=== PATIENT | female | born 1970 | race Hispanic/Latino ===

== ENCOUNTER 2020-03-13 16:29 | Emergency (ER) | payer OTHER, SELFPAY ==
--- NOTE | 2020-03-13 16:37 | DI.RAD.S_ITS ---
PROCEDURE: XR CHEST 1V INDICATIONS: CHEST PAIN TECHNIQUE: One view of the chest was acquired. COMPARISON: None. FINDINGS: Surgical changes and devices: None. Lungs and pleura: Lungs are clear. No pleural effusions or pneumothorax. Mediastinum: Mediastinal contours appear normal. Heart size is normal. Bones and chest wall: No suspicious bony lesions. Overlying soft tissues appear unremarkable. IMPRESSION: No acute cardiopulmonary pathology. Dictated by: Nico Hay M.D. on 03/13/2020 at 16:58 Approved by: Nico Hay M.D. on 03/13/2020 at 16:59
[2020-03-13 16:46] VITALS: BP 116/67; PULSE 81; RESP 16; O2SAT 98
[2020-03-13] MEDS: SODIUM CHLORIDE 0.9% 1,000 ML 150 ML IV (16:46)
[2020-03-13] MEDS: ASPIRIN 81 MG CHEW TAB 324 MG PO (16:46)
[2020-03-13 17:08] LABS: Add Manual Diff / Slide Review NO; Basophils Absolute Auto 100 /uL (0-100); Basophils Percent Auto 1.4 % (0-2); Eosinophils Absolute Auto 200 /uL (0-450); Eosinophils Percent Auto 1.8 % (2-4); Hematocrit 40.2 % (36-46); Hemoglobin 13.9 g/dL (12.0-16.0); Lymphocytes Absolute Auto 3900 /uL (1100-4500); Lymphocytes Percent Auto 40.8 % (25-40); Mean Corpuscular HGB Conc 34.5 % (30-36); Mean Corpuscular Hemoglobin 32.7 PG (26-34); Mean Corpuscular Volume 94.9 fL (80-100); Monocytes Absolute Auto 400 /uL (0-900); Monocytes Percent Auto 3.7 % (3-14); Neutrophils Absolute Auto 5000 /uL (1500-7000); Neutrophils Percent Auto 52.3 % (50-75); Platelet Count 319 X10^3/uL (150-400); Red Blood Cell Count 4.23 X10^6/uL (4.0-5.2); Red Cell Distribution Width 13.8 % (11.6-14.8); White Blood Cell Count 9.6 X10^3/uL (4.5-11.0)
[2020-03-13 17:22] LABS: Albumin 4.3 g/dL (3.5-5.0); Albumin Globulin Ratio 1.4 (1.0-2.8); Alkaline Phosphatase 122 U/L (38-126); Aspartate Aminotransferase 33 IU/L (14-36); BUN Creatinine Ratio 18.6 (6-22); Bilirubin Total 0.5 mg/dL (0.2-1.3); Blood Urea Nitrogen 8 mg/dL (7-17); Calcium 9.2 mg/dL (8.4-10.2); Carbon Dioxide 22 mmol/L (22-32); Chloride 103 mmol/L (98-107); Creatine Kinase 48 U/L (30-135); Estimated Glomerular Filt Rate > 60.0 mL/min (>60); Glucose 257 mg/dL (70-100); Lipase 264 U/L (23-300); Sodium 135 mmol/L (137-145); Total Protein 7.3 g/dL (6.3-8.2)
[2020-03-13 17:29] LABS: Alanine Aminotransferase 37 IU/L (<35); HEMOLYSIS 33 (0-50)
[2020-03-13 17:33] LABS: Troponin I < 0.012 ng/mL (0.01-0.034)
[2020-03-13 17:37] VITALS: BP 112/64
[2020-03-13 17:49] LABS: Amylase 87 U/L (30-110)
[2020-03-13] MEDS: ONDANSETRON 4 MG/2 ML INJ IV (17:55)
[2020-03-13] MEDS: PANTOPRAZOLE 40 MG VIAL IV (17:55)
--- NOTE | 2020-03-13 17:57 | ED_ITS ---
HPI - Chest Pain <WEI Vieyra - Last Filed: 03/13/20 20:34> General Chief Complaint: Chest Pain Stated Complaint: CHEST PAIN Time Seen by Provider: 03/13/20 17:06 Source: patient Mode of arrival: Ambulatory Limitations: no limitations History of Present Illness HPI narrative: The patient is a 49-year-old female nonsmoker with history of type 2 diabetes who presents with a chief complaint of chest pain since yesterday. She states it is shooting and stabbing, comes without instigating factors. She has not taken anything at home to feel better other than Tylenol. She states she does have history of type 2 diabetes, and ulcer, cholecystectomy, 3 hernia surgerys as well as a Caesarean section. She states that she recently had a stomach flu for few days, with nausea, vomiting, no fevers. She denies any shortness of breath or fevers. She states she has general abdominal pain. She states that the pain is substernal, sometimes improved with change of position or pressure. Related Data Previous Rx's Medication Instructions Recorded pantoprazole [Protonix] 40 mg PO DAILY #20 tab 03/13/20 sucralfate [Carafate] 10 ml PO QACHS 10 Days #400 ml 03/13/20 Allergies Allergy/AdvReac Type Severity Reaction Status Date / Time codeine [CODEINE] Allergy Mild NAUSEA, Verified 03/13/20 17:55 SLEEP ATTACK Review of Systems <WEI Vieyra - Last Filed: 03/13/20 20:34> Review of Systems Narrative: GENERAL: Denies chills, fatigue, malaise, fever, sweats. HEENT: Denies sinus pain, ear pain, sore throat, difficulty swallowing, dizziness. RESPIRATORY: Denies dyspnea, cough, wheezing, hemoptysis, sputum. CARDIOVASCULAR: See HPI GASTROINTESTINAL: See HPI : Denies dysuria, frequency, incontinence, hematuria, urinary retention. MUSCULOSKELETAL: denies weakness, joint pain, or bony pain SKIN: Denies rash, skin lesions, or other NEUROLOGIC: Denies weakness, headache, numbness, change in speech, confusion, seizures, incoordination. PSYCHIATRIC: No concerning psychosocial issues. 12 point review of systems is negative except for those stated above Patient History <WEI Vieyra - Last Filed: 03/13/20 20:34> Surgical History (Updated 03/13/20 @ 18:00 by KYLE Vieyra) History of section (Acute) Social History Smoking Status: Never smoker Smoking Status: Never smoker Substance Use Type: does not use Exam <KYLE Vieyra - Last Filed: 03/13/20 20:34> Narrative Exam Narrative: GENERAL: This is a well-nourished, well-developed patient, in no acute distress HEAD: Atraumatic. Normocephalic. No temporal or scalp tenderness. EYES: Pupils equal round and reactive. Extraocular motions intact. No scleral icterus. No injection or drainage. ENT: Nose without bleeding, purulent drainage or septal hematoma. Throat without erythema, tonsillar hypertrophy or exudate. Uvula midline. Airway patent. NECK: Trachea midline. No JVD or lymphadenopathy. Supple, nontender, no men ingeal signs. CARDIOVASCULAR: Regular rate and rhythm RESPIRATORY: Clear to auscultation. Breath sounds equal bilaterally. No wheezes, rales, or rhonchi. No cough. No increased respiratory effort. No accessory muscle use. GASTROINTESTINAL: Abdomen soft, pain to epigastric palpation, nondistended. No hepato-splenomegaly, or palpable masses. No guarding. EXTREMITIES: No clubbing, cyanosis, or edema. No joint tenderness, effusion, or edema noted. BACK: Nontender without deformity or crepitance. No flank tenderness. NEURO: AOx3. SKIN: No rash or erythema on visible skin Initial Vital Signs Initial Vital Signs: Vital Signs Pulse Rate 81 03/13/20 16:46 Respiratory Rate 16 03/13/20 16:46 Blood Pressure 116/67 03/13/20 16:46 Pulse Oximetry 98 03/13/20 16:46 <Laura Em DO - Last Filed: 03/15/20 10:14> Initial Vital Signs Initial Vital Signs: Vital Signs Pulse Rate 81 03/13/20 16:46 Respiratory Rate 16 03/13/20 16:46 Blood Pressure 116/67 03/13/20 16:46 Pulse Oximetry 98 03/13/20 16:46 Course <KYLE Vieyra - Last Filed: 03/13/20 20:34> Orders Ordered: Discontinued Medications Aspirin (Aspirin Chew) 324 mg PO NOW ONE Stop: 03/13/20 16:38 Last Admin: 03/13/20 16:46 Dose: 324 mg Documented by: HELADIO Wetzel Hydrox/Mg Hydrox/Simethicone 20 ml/ Lidocaine HCl 15 ml 0 ml PO NOW ONE Stop: 03/13/20 18:44 Last Admin: 03/13/20 18:58 Dose: 35 ml Documented by: HELADIO Sodium Chloride (Normal Saline 0.9%) 1,000 mls @ 150 mls/hr IV CONT SARAH Last Infusion: 03/13/20 20:43 Dose: 0 mls/hr Documented by: Admin: 03/13/20 16:46 Dose: 150 mls/hr Documented by: HELADIO Ondansetron HCl (Zofran) 4 mg IV NOW ONE Stop: 03/13/20 17:34 Last Admin: 03/13/20 17:55 Dose: 4 mg Documented by: HELADIO Pantoprazole Sodium (Protonix) 40 mg IV NOW ONE Stop: 03/13/20 17:34 Last Admin: 03/13/20 17:55 Dose: 40 mg Documented by: HELADIO Sucralfate (Carafate) 1 gm PO NOW ONE Stop: 03/13/20 18:45 Last Admin: 03/13/20 19:11 Dose: 1 gm Documented by: HELADIO Vital Signs Vital signs: Vital Signs - 8 hr 03/13/20 16:46 03/13/20 17:37 03/13/20 18:07 Pulse Rate 81 75 Respiratory Rate 16 18 Blood Pressure [Left Arm] 116/67 112/64 111/58 L Pulse Oximetry 98 98 03/13/20 18:52 03/13/20 19:03 03/13/20 19:59 Pulse Rate 71 70 70 Respiratory Rate 17 16 13 Blood Pressure [Left Arm] 107/52 L 111/64 101/56 L Pulse Oximetry 98 97 98 <Laura Em DO - Last Filed: 03/15/20 10:14> Orders Ordered: Discontinued Medications Aspirin (Aspirin Chew) 324 mg PO NOW ONE Stop: 03/13/20 16:38 Last Admin: 03/13/20 16:46 Dose: 324 mg Documented by: HELADIO Wetzel Hydrox/Mg Hydrox/Simethicone 20 ml/ Lidocaine HCl 15 ml 0 ml PO NOW ONE Stop: 03/13/20 18:44 Last Admin: 03/13/20 18:58 Dose: 35 ml Documented by: HELADIO Sodium Chloride (Normal Saline 0.9%) 1,000 mls @ 150 mls/hr IV CONT SARAH Last Infusion: 03/13/20 20:43 Dose: 0 mls/hr Documented by: Admin: 03/13/20 16:46 Dose: 150 mls/hr Documented by: HELADIO Ondansetron HCl (Zofran) 4 mg IV NOW ONE Stop: 03/13/20 17:34 Last Admin: 03/13/20 17:55 Dose: 4 mg Documented by: HELADIO Pantoprazole Sodium (Protonix) 40 mg IV NOW ONE Stop: 03/13/20 17:34 Last Admin: 03/13/20 17:55 Dose: 40 mg Documented by: HELADIO Sucralfate (Carafate) 1 gm PO NOW ONE Stop: 03/13/20 18:45 Last Admin: 03/13/20 19:11 Dose: 1 gm Documented by: HELADIO Vital Signs Vital signs: Vital Signs - 8 hr 03/13/20 16:46 03/13/20 17:37 03/13/20 18:07 Pulse Rate 81 75 Respiratory Rate 16 18 Blood Pressure [Left Arm] 116/67 112/64 111/58 L Pulse Oximetry 98 98 03/13/20 18:52 03/13/20 19:03 03/13/20 19:59 Pulse Rate 71 70 70 Respiratory Rate 17 16 13 Blood Pressure [Left Arm] 107/52 L 111/64 101/56 L Pulse Oximetry 98 97 98 MDM - Chest Pain <JENNA Vieyra-ASHA - Last Filed: 03/13/20 20:34> Lab Data Attestation: I reviewed the patient's lab results. Result diagrams: 03/13/20 17:00 03/13/20 17:00 Labs: Lab Results 03/13/20 03/13/20 03/13/20 Range/Units 17:00 17:00 17:00 WBC 9.6 (4.5-11.0) X10^3/uL RBC 4.23 (4.0-5.2) X10^6/uL Hgb 13.9 (12.0-16.0) g/dL Hct 40.2 (36-46) % MCV 94.9 (80-100) fL MCH 32.7 (26-34) PG MCHC 34.5 (30-36) % RDW 13.8 (11.6-14.8) % Plt Count 319 (150-400) X10^3/uL Neut % (Auto) 52.3 (50-75) % Lymph % (Auto) 40.8 H (25-40) % [place] % (Auto) 3.7 (3-14) % Eos % (Auto) 1.8 L (2-4) % Baso % (Auto) 1.4 (0-2) % Neut # (Auto) 5000 (9933-0603) /uL Lymph # (Auto) 3900 (3221-0166) /uL [place] # (Auto) 400 (0-900) /uL Eos # (Auto) 200 (0-450) /uL Baso # (Auto) 100 (0-100) /uL D-Dimer 401 H (<230) ng/mL Sodium 135 L (137-145) mmol/L Potassium 4.0 (3.4-5.1) mmol/L Chloride 103 (98-107) mmol/L Carbon Dioxide 22 (22-32) mmol/L BUN 8 (7-17) mg/dL Creatinine 0.43 L (0.52-1.04) mg/dL Estimated GFR > 60.0 (>60) mL/min BUN/Creatinine Ratio 18.6 (6-22) Glucose 257 H (70-100) mg/dL Calcium 9.2 (8.4-10.2) mg/dL Total Bilirubin 0.5 (0.2-1.3) mg/dL AST 33 (14-36) IU/L ALT 37 H (<35) IU/L Alkaline Phosphatase 122 (38-126) U/L Total Creatine Kinase 48 (30-135) U/L CK-MB (CK-2) TNP CK-MB (CK-2) Rel Index TNP Troponin I < 0.012 (0.01-0.034) ng/mL Total Protein 7.3 (6.3-8.2) g/dL Albumin 4.3 (3.5-5.0) g/dL Globulin 3.0 (1.7-4.1) g/dL Albumin/Globulin Ratio 1.4 (1.0-2.8) Amylase (30-110) U/L Lipase 264 (23-300) U/L TSH (0.47-4.68) uIU/mL 03/13/20 03/13/20 03/13/20 Range/Units 17:00 17:00 19:25 WBC (4.5-11.0) X10^3/uL RBC (4.0-5.2) X10^6/uL Hgb (12.0-16.0) g/dL Hct (36-46) % MCV (80-100) fL MCH (26-34) PG MCHC (30-36) % RDW (11.6-14.8) % Plt Count (150-400) X10^3/uL Neut % (Auto) (50-75) % Lymph % (Auto) (25-40) % [place] % (Auto) (3-14) % Eos % (Auto) (2-4) % Baso % (Auto) (0-2) % Neut # (Auto) (8851-1731) /uL Lymph # (Auto) (8894-2354) /uL [place] # (Auto) (0-900) /uL Eos # (Auto) (0-450) /uL Baso # (Auto) (0-100) /uL D-Dimer (<230) ng/mL Sodium (137-145) mmol/L Potassium (3.4-5.1) mmol/L Chloride (98-107) mmol/L Carbon Dioxide (22-32) mmol/L BUN (7-17) mg/dL Creatinine (0.52-1.04) mg/dL Estimated GFR (>60) mL/min BUN/Creatinine Ratio (6-22) Glucose (70-100) mg/dL Calcium (8.4-10.2) mg/dL Total Bilirubin (0.2-1.3) mg/dL AST (14-36) IU/L ALT (<35) IU/L Alkaline Phosphatase (38-126) U/L Total Creatine Kinase 43 (30-135) U/L CK-MB (CK-2) TNP CK-MB (CK-2) Rel Index TNP Troponin I < 0.012 (0.01-0.034) ng/mL Total Protein (6.3-8.2) g/dL Albumin (3.5-5.0) g/dL Globulin (1.7-4.1) g/dL Albumin/Globulin Ratio (1.0-2.8) Amylase 87 (30-110) U/L Lipase (23-300) U/L TSH 0.83 (0.47-4.68) uIU/mL Point of Care Testing Test Results Negative Imaging Data Chest x-ray: Radiologist's Impression: [address] [place] [id number] XRay Report Signed Patient: Danielle Layne R#: [id number] : 1970Acct:[id number] Age/Sex: 49 / FDate of Service: 03/13/20 Loc: ED Accession Number: [id number] Procedure: XR chest 1V Ordering Provider: Laura mE D.O. PROCEDURE: XR CHEST 1V INDICATIONS: CHEST PAIN TECHNIQUE: One view of the chest was acquired. COMPARISON: None. FINDINGS: Surgical changes and devices: None. Lungs and pleura: Lungs are clear. No pleural effusions or pneumothorax. Mediastinum: Mediastinal contours appear normal. Heart size is normal. Bones and chest wall: No suspicious bony lesions. Overlying soft tissues appear unremarkable. IMPRESSION: No acute cardiopulmonary pathology. Dictated by: Nico Hay M.D. on 03/13/2020 at 16:58 Approved by: Nico Hay M.D. on 03/13/2020 at 16:59 ECG Data Attestation: I personally reviewed and interpreted this ECG as follows: Interpretation: Sinus rhythm. Ventricular rate 74. P.r. interval 145. QRS 86. viewed by Dr Em [facility] Narrative Medical decision making narrative: The patient is a 49-year-old female who presents with a chief complaint of chest pain going on all since yesterday. Her initial troponin is negative, her EKG is without noted abnormalities, her chest x-ray is no acute findings. She felt much improved after the above-stated therapies, which were initiated as the patient has history of a all recent vomiting which has improved as well as a stomach ulcer. She felt much improved after the above-stated therapies. Her repeat troponin was also negative. I discussed at length follow up with her primary care provider in the next few days. I discussed at length coming back to the emergency department for any acute concerns, starting a low acid was spice diet. Patient has been without pain throughout her stay in the emergency department after the above-stated therapies. She has no questions or concerns upon discharge and states understanding return precautions as well as the follow-up care. <Laura Nadine Em, DO - Last Filed: 03/15/20 10:14> Lab Data Labs: Lab Results 03/13/20 03/13/20 03/13/20 Range/Units 17:00 17:00 17:00 WBC 9.6 (4.5-11.0) X10^3/uL RBC 4.23 (4.0-5.2) X10^6/uL Hgb 13.9 (12.0-16.0) g/dL Hct 40.2 (36-46) % MCV 94.9 (80-100) fL MCH 32.7 (26-34) PG MCHC 34.5 (30-36) % RDW 13.8 (11.6-14.8) % Plt Count 319 (150-400) X10^3/uL Neut % (Auto) 52.3 (50-75) % Lymph % (Auto) 40.8 H (25-40) % [place] % (Auto) 3.7 (3-14) % Eos % (Auto) 1.8 L (2-4) % Baso % (Auto) 1.4 (0-2) % Neut # (Auto) 5000 (7111-6591) /uL Lymph # (Auto) 3900 (1560-3573) /uL [place] # (Auto) 400 (0-900) /uL Eos # (Auto) 200 (0-450) /uL Baso # (Auto) 100 (0-100) /uL D-Dimer 401 H (<230) ng/mL Sodium 135 L (137-145) mmol/L Potassium 4.0 (3.4-5.1) mmol/L Chloride 103 (98-107) mmol/L Carbon Dioxide 22 (22-32) mmol/L BUN 8 (7-17) mg/dL Creatinine 0.43 L (0.52-1.04) mg/dL Estimated GFR > 60.0 (>60) mL/min BUN/Creatinine Ratio 18.6 (6-22) Glucose 257 H (70-100) mg/dL Calcium 9.2 (8.4-10.2) mg/dL Total Bilirubin 0.5 (0.2-1.3) mg/dL AST 33 (14-36) IU/L ALT 37 H (<35) IU/L Alkaline Phosphatase 122 (38-126) U/L Total Creatine Kinase 48 (30-135) U/L CK-MB (CK-2) TNP CK-MB (CK-2) Rel Index TNP Troponin I < 0.012 (0.01-0.034) ng/mL Total Protein 7.3 (6.3-8.2) g/dL Albumin 4.3 (3.5-5.0) g/dL Globulin 3.0 (1.7-4.1) g/dL Albumin/Globulin Ratio 1.4 (1.0-2.8) Amylase (30-110) U/L Lipase 264 (23-300) U/L TSH (0.47-4.68) uIU/mL 03/13/20 03/13/20 03/13/20 Range/Units 17:00 17:00 19:25 WBC (4.5-11.0) X10^3/uL RBC (4.0-5.2) X10^6/uL Hgb (12.0-16.0) g/dL Hct (36-46) % MCV (80-100) fL MCH (26-34) PG MCHC (30-36) % RDW (11.6-14.8) % Plt Count (150-400) X10^3/uL Neut % (Auto) (50-75) % Lymph % (Auto) (25-40) % [place] % (Auto) (3-14) % Eos % (Auto) (2-4) % Baso % (Auto) (0-2) % Neut # (Auto) (2764-3867) /uL Lymph # (Auto) (4767-6349) /uL [place] # (Auto) (0-900) /uL Eos # (Auto) (0-450) /uL Baso # (Auto) (0-100) /uL D-Dimer (<230) ng/mL Sodium (137-145) mmol/L Potassium (3.4-5.1) mmol/L Chloride (98-107) mmol/L Carbon Dioxide (22-32) mmol/L BUN (7-17) mg/dL Creatinine (0.52-1.04) mg/dL Estimated GFR (>60) mL/min BUN/Creatinine Ratio (6-22) Glucose (70-100) mg/dL Calcium (8.4-10.2) mg/dL Total Bilirubin (0.2-1.3) mg/dL AST (14-36) IU/L ALT (<35) IU/L Alkaline Phosphatase (38-126) U/L Total Creatine Kinase 43 (30-135) U/L CK-MB (CK-2) TNP CK-MB (CK-2) Rel Index TNP Troponin I < 0.012 (0.01-0.034) ng/mL Total Protein (6.3-8.2) g/dL Albumin (3.5-5.0) g/dL Globulin (1.7-4.1) g/dL Albumin/Globulin Ratio (1.0-2.8) Amylase 87 (30-110) U/L Lipase (23-300) U/L TSH 0.83 (0.47-4.68) uIU/mL Point of Care Testing Test Results Negative Discharge Plan Departure Patient Disposition: Home Clinical Impression: Atypical chest pain, Abdominal pain in female Discharge Date/Time: 03/13/20 20:44 Instructions: DI for Gastroesophageal Reflux Disease (GERD), DI for Atypical Chest Pain, GERD Diet Activity Restrictions/Additional Instructions: Thank you for trusting us with your care today. As discussed, your chest x-ray and lab work came back well You felt much improved after using anti acid medications for your stomach. I sent prescriptions of 2 medications to [facility] Please follow-up with primary care provider next few days. I suggested low acid, low spice, bland diet Please come back to the emergency department for any acute concerns such as concern of heart attack or stroke Prescriptions: New pantoprazole [Protonix] 40 mg tablet,delayed release (DR/EC) 40 mg PO DAILY Qty: 20 RF: 0 sucralfate [Carafate] 100 mg/mL suspension 10 ml PO QACHS 10 Days Qty: 400 RF: 0 Referrals: Yaron Bangura MD [Non-Staff] -
[2020-03-13 18:07] VITALS: BP 111/58; PULSE 75; RESP 18; O2SAT 98
[2020-03-13 18:12] LABS: D Dimer 401 ng/mL (<230)
[2020-03-13 18:34] LABS: Thyroid Stimulating Hormone 0.83 uIU/mL (0.47-4.68)
[2020-03-13 18:52] VITALS: BP 107/52; PULSE 71; RESP 17; O2SAT 98
[2020-03-13] MEDS: MAG HYDROX/ALUMINUM/SIMETH SUS 20 ML, LIDOCAINE VISCOUS 2% 15 ML PO (18:58)
[2020-03-13 19:03] VITALS: BP 111/64; PULSE 70; RESP 16; O2SAT 97
[2020-03-13] MEDS: SUCRALFATE 1 GM/10 ML ORAL SUSP PO (19:11)
[2020-03-13 19:53] LABS: Creatine Kinase 43 U/L (30-135)
[2020-03-13 19:59] VITALS: BP 101/56; PULSE 70; RESP 13; O2SAT 98
[2020-03-13 20:06] LABS: Troponin I < 0.012 ng/mL (0.01-0.034)
== END 2020-03-13 20:44 | disposition home or self-care (01) ==
PROVIDERS: Emergency Medicine; Emergency Provider Nurse Practitioner Family
DX: R07.89 Other chest pain (principal); R10.9 Unspecified abdominal pain
CPT/HCPCS: 36415; 71045; 80053; 81025; 82150; 82550; 83690; 84443; 84484; 85025; 85379; 93005; 96361; 96374; 96375; 99284; C9113; J2405

== ENCOUNTER → 2020-04-23 11:49 | Outpatient (CLI) | payer OTHER, SELFPAY ==
--- NOTE | 2020-04-23 11:53 | DI.US.S_ITS ---
PROCEDURE: US ABDOMEN COMPLETE INDICATIONS: EPIGASTRIC PAIN TECHNIQUE: Real-time scanning was performed of the abdominal and retroperitoneal organs, with image documentation. COMPARISON: [facility], CR, XR CHEST 1V, 03/13/2020, 16:48. [facility], CT, ABDOMEN/PELVIS WITH CONTRAST, 03/19/2016, 21:33. FINDINGS: Liver: The liver demonstrates normal size. The liver demonstrates generalized increased echogenicity, with heterogeneity. This decreases ultrasound sensitivity for detection of hepatic masses. Gallbladder: Removed Biliary ducts: Intrahepatic bile ducts are non-dilated. Extrahepatic bile duct caliber measures 8 mm. Normal is 6-7 mm or less in diameter, or 10 mm or less post-cholecystectomy. Pancreas: Visualized portions of the pancreas are sonographically normal. Spleen: Spleen is normal in size and homogeneous in echotexture. Kidneys: Kidneys are normal in size and echotexture. Right kidney measures 12.4 cm long; left kidney measures 12.3 cm long. No hydronephrosis or nephrolithiasis. No solid masses. Aorta: Visualized aorta is normal in caliber at less than 3 cm. Iliacs: Proximal common iliac arteries are normal in caliber at less than 2.5 cm. IVC: Intrahepatic inferior vena cava is patent. Miscellaneous: No free abdominal fluid. This study is limited by body habitus. IMPRESSION: No imaging explanation is found for this patient's presenting symptoms. Status post cholecystectomy, without biliary dilatation. The liver demonstrates increased echogenicity. This finding is nonspecific, yet it is attributed to fatty infiltration. Dictated by: Hill Torres M.D. on 04/23/2020 at 12:14 Approved by: Hill Torres M.D. on 04/23/2020 at 12:15
== END ==
PROVIDERS: PCP General Practice; Referring Provider Physician Assistant; Visit Provider Physician Assistant
DX: R10.13 Epigastric pain (principal); R11.2 Nausea with vomiting, unspecified; Z90.49 Acquired absence of other specified parts of digestive tract
CPT/HCPCS: 76700

== ENCOUNTER → 2021-01-25 07:47 | Outpatient (CLI) | payer OTHER, SELFPAY ==
[2021-01-25] MEDS: COVID-19 VACC, Ad26(JANSSEN)/PF 0.5 ML IM (07:56)
== END ==
PROVIDERS: PCP General Practice; Visit Provider Internal Medicine
DX: Z23 Encounter for immunization (principal)
CPT/HCPCS: 0031A; 91303

== ENCOUNTER → 2021-05-13 14:15 | Outpatient (CLI) | payer OTHER, SELFPAY ==
[2021-05-13 15:26] LABS: COVID19 -Nasal RAPID Negative (Negative)
== END ==
PROVIDERS: PCP General Practice; Referring Provider Specialist; Visit Provider Specialist
DX: Z01.812 Encounter for preprocedural laboratory examination (principal); Z20.822 Contact with and (suspected) exposure to COVID-19
CPT/HCPCS: 87635

== ENCOUNTER 2021-05-14 08:17 | Day surgery (SDC) | payer OTHER, SELFPAY ==
[2021-05-11 11:47] VITALS: BMI 31.1
--- NOTE | 2021-05-14 | PATH_ITS ---
[facility] Accession Number: [id number] . 01 Material submitted: . endometrium - ENDOMETRIAL CURETTINGS . 01 Clinical history: . SDC . 02 Diagnosis: Endometrial Curettings: Patchy involvement with benign (non-atypical) endometrial hyperplasia in a background of disordered proliferative endometrium. Negative for atypia or malignancy. Some endometrial fragments demonstrate prominent vessels, suggestive of polyp, if clinical and imaging studies are concordant. Squamous and metaplastic squamous mucosa, favor cervical origin; negative for squamous dysplasia or malignancy. Portions of endocervix; negative for glandular dysplasia or malignancy. MRV 05/19/2021 1322 Local . 02 Electronically signed: . Nevin Bryant MD, Pathologist NPI- [id number] . 01 Gross description: . ENDOMETRIAL CURETTINGS: Received in formalin are minute fragments of mucoid and hemorrhagic material measuring 3.0 x 2.0 x 0.4 cm in aggregate. Submitted in toto in 1 cassette. /[place] 05/15/2021 0706 Local . 02 Pathologist provided ICD-10: N92.0, D25.0 . 02 CPT . 191260 Performed at: 01 [facility] [address], [place], [place] [id number] MD Gavin Craig MD Phone: [phone] Performed at: 02 [facility] [address] [place], [place] [id number] MD Wendi Kuhn MD Phone: [phone]
[2021-05-14 08:37] VITALS: BP 115/70; PULSE 78; RESP 14; TEMP 36.2; O2SAT 97; BMI 31.1
--- NOTE | 2021-05-14 08:53 | SUR.OPER ---
Lithotomy on padded OR bed, head on pillow, arms secured on padded arm boards at <90 degrees abduction. Legs secured in padded yellow fins stirrups.
[2021-05-14] MEDS: LACTATED RINGERS 1,000 ML 100 ML IV (08:54)
[2021-05-14 09:06] VITALS: BMI 31.1
--- NOTE | 2021-05-14 09:20 | PM.PREOP ---
Pre-operative Note COVID-19 COVID-19 status: Negative Result date/Date tested (Pos, Neg/Pending): 05/13/21 Interval Note History & Physical reviewed/Exam performed by Physician: Yes Changes to H&P: No
[2021-05-14 09:47] VITALS: BP 115/58; PULSE 72; RESP 16; TEMP 36.6; O2SAT 96
[2021-05-14 09:52] VITALS: BP 106/63; PULSE 72; RESP 16; O2SAT 95
--- NOTE | 2021-05-14 09:54 | P.OP_ITS ---
Operative Date/Time/Diagnoses Date of procedure: 05/14/21 Time of procedure: 09:54 Pre-op diagnosis: Menorrhagia Post-op diagnosis: same Procedure & Clinicians Procedure: Hysteroscopy with endometrial curettage and NovaSure endometrial ablation Same procedure as scheduled: Yes Indications: Menorrhagia Surgeon: Anitha Mohan Click Yes if Unassisted: Yes Anesthesia Type: General Operative Notes Findings: Normal exam under anesthesia. Slight indentation on the anterior uterine wall from a submucous fibroid. No other abnormalities. Closure Type: not applicable Specimen(s): other (Endometrial curettings) Estimated Blood Loss (mL): 5 Procedure in detail: Patient was brought to the operating room where she was underwent general anesthesia was placed in the [facility]. Pulsatile stockings were in place and functional. Antibiotics were not indicated. Warming was with blankets. A check system was reviewed with the staff in the room. A single-tooth tenaculum was placed on the anterior lip of the cervix. The cervix was already significantly dilated. The hysteroscope was placed through the cervix into the uterus with sorbitol solution running. Curettage was performed. The tissue was sent to pathology. The BIXI sound was used to determine the length of the uterus which was 6.5 cm. This was set on the NovaSure device. The device was placed in the uterus and the width determined to be 4.5 cm. The length and width were entered into the NovaSure machine. The plunger was pushed to the cervix to effect a good vacuum seal. This was documented by the machine. Cauterization was done with a total power of 161 and 45 seconds. The NovaSure array was pulled back into the device and then the device removed. Patient tolerated the procedure well. Counts of instruments and sponges were correct. Patient went to recovery room in good condition. Complications: none Post-operative Condition: stable Disposition: same day surgery Plan for aftercare: Home when awake and stable
[2021-05-14] MEDS: KETOROLAC 30 MG/ML VIAL IV (09:56)
[2021-05-14 09:57] VITALS: BP 115/58; BP 123/65; PULSE 71; PULSE 80; RESP 14; RESP 16; O2SAT 95
[2021-05-14] MEDS: fentaNYL 100 MCG/2 ML INJ IV (10:04)
[2021-05-14] MEDS: OXYCODONE/ACETAMINOPHEN 5/325 TABLET 1 TAB PO (10:11)
[2021-05-14 10:22] VITALS: BP 120/70; PULSE 65; RESP 16; O2SAT 98
[2021-05-14 10:39] VITALS: BP 101/64; PULSE 70; RESP 14; TEMP 35.8; O2SAT 96
== END 2021-05-14 10:45 | disposition home or self-care (01) ==
PROVIDERS: Referring Provider Specialist; Visit Provider Specialist
PROC: 0U5B8ZZ Destruction of Endometrium, Via Natural or Artificial Opening Endoscopic (ICD-10-PCS; CPT 58563; principal; 2021-05-14 09:45)
DX: N92.0 Excessive and frequent menstruation with regular cycle (principal); E11.9 Type 2 diabetes mellitus without complications; Z79.84 Long term (current) use of oral hypoglycemic drugs; D25.0 Submucous leiomyoma of uterus
CPT/HCPCS: 58563; J1100; J1885; J2405; J2704; J3010

== ENCOUNTER 2022-03-16 13:51 | Emergency (ER) | payer OTHER, SELFPAY ==
[2022-03-16 14:15] VITALS: BP 122/64; PULSE 78; RESP 18; TEMP 36.2; O2SAT 98; BMI 28.3
[2022-03-16 14:47] LABS: Appearance Urine UA CLEAR; Bilirubin Urine UA NEGATIVE (NEGATIVE); Color Urine UA YELLOW; Glucose Urine UA 3+ g/dL (Negative); Ketones Urine UA NEGATIVE (NEGATIVE); Leukocyte Esterase Urine UA NEGATIVE (NEGATIVE); Nitrite Urine UA NEGATIVE (Negative); Occult Blood Urine UA 3+ (Negative); Protein Urine UA NEGATIVE (Negative); Urobilinogen Urine UA 0.2 E.U./dL (0.2)
[2022-03-16 14:48] LABS: pH Urine UA 5.5 (4.5-8.0)
[2022-03-16 14:53] LABS: Bacteria Urine None Seen; Culture Indicated Urine Specimen Cultured; RBC Urine 5-10/HPF (0-5/HPF); WBC Urine None Seen (0-5/HPF)
--- NOTE | 2022-03-16 15:25 | PC.NURSE ---
Addendum entered by Jodie Luna R.N. 03/16/22 15:35: Pt denies any new sexual partners. Her diabetes is under control ranging between 80-130. Original Note: Pt reports that she was instructed to seek an evlaution after reporting that she has been having pelvic and lower back pain for one month and was spotting three days ago. Spotting has resolved. Pt reports her last menstrual cycle was 2021. She had a Uterine ablasion and D&C May 2021. She was scheduled for a hysterectomy this month to resolve bleeding issues but canceled the procedure because she stopped bleeding since November. Pt skin is pink, warm and dry. She is speaking calmly with this RN and denies CP, SOB and dizziness.
[2022-03-16 15:30] VITALS: BP 111/66; PULSE 72; RESP 18; TEMP 36.2; O2SAT 99
[2022-03-16] MEDS: FLUCONAZOLE 100 MG TABLET 150 MG PO (15:55)
[2022-03-16] MEDS: PHENAZOPYRIDINE 100 MG TABLET PO (15:56)
[2022-03-16] MEDS: NITROFURANTOIN ER 100 MG CAPSULE PO (15:56)
--- NOTE | 2022-03-16 15:58 | ED.FEMALEGU ---
HPI - Female Genitourinary <MICHEAL Salinas - Last Filed: 03/16/22 16:06> General Chief complaint: Urogenital-Female Stated complaint: Reaction to meds, phys ref for UTI/kidney inf. Time Seen by Provider: 03/16/22 15:16 Source: patient Mode of arrival: Ambulatory History of Present Illness HPI Narrative: This is a 51-year-old female who presents to the emergency department complaining of 1 month of urinary frequency, urgency, pelvic pressure without burning with urination. Patient is a diabetic, on Jardiance, recently decreased dose from 25-10 and was following up with her primary care provider Angie BURTON about her medication and she was assessing whether patient had any dysuria, or symptoms of bladder infection or yeast. Patient endorses she was diagnosed with diabetes due to her frequent vaginal yeast infections. She states that she started spotting 3 days ago from her vagina, had a uterine ablation in May 2021 and has had occasional vaginal spotting since December 2021. She states that her spotting is brown, stopped last night, denies any fever, nausea vomiting, fatigue, lightheadedness, dizziness, sweats or chills. Patient denies any vulvar itching or thick white vaginal discharge. She denies any flank pain. She denies any possibility that this is a sexually transmitted infection. Related Data Home Medications Medication Instructions Recorded Confirmed citalopram 40 mg tablet 40 mg PO DAILY 05/04/21 05/14/21 liraglutide 0.6 mg/0.1 mL (18 mg/3 0.6 mg SUBCUT DAILY 05/04/21 05/14/21 mL) subcutaneous pen injector (Victoza 2-Javed) metformin 500 mg tablet 2,000 mg PO DAILY tab 05/04/21 05/14/21 empagliflozin 25 mg tablet 25 mg PO DAILY 01/12/22 01/12/22 (Jardiance) Previous Rx's Medication Instructions Recorded fluconazole 150 mg tablet 150 mg PO Q3D PRN 9 Days #3 tab 03/16/22 nitrofurantoin 100 mg PO BID 5 Days #10 cap 03/16/22 monohydrate/macrocrystals 100 mg capsule (Macrobid) phenazopyridine 100 mg tablet 100 mg PO TID PRN #7 tab 03/16/22 (Pyridium) Allergies Allergy/AdvReac Type Severity Reaction Status Date / Time codeine [CODEINE] Allergy Mild NAUSEA, Verified 01/12/22 09:10 SLEEP ATTACK exenatide [From Bydureon] AdvReac Severe rash Verified 01/12/22 09:10 Review of Systems <MICHEAL Salinas - Last Filed: 03/16/22 16:06> Review of Systems Narrative: General: denies fever, chills, malaise, sweats, fatigue Head/Neck: denies headache, neck pain, dizziness Eyes: denies visual changes, eye pain Cardio: denies chest pain, palpitations, edema Respiratory: denies dyspnea, cough, orthopnea GI: denies abdominal pain, nausea, vomiting, or diarrhea : denies dysuria, hematuria, urinary retention, endorses urinary urgency and frequency with bladder pressure symptom MSK: denies joint pain, muscle weakness Skin: denies rash, itching, skin lesions or other Neuro: denies numbness, tingling Patient History <MICHEAL Salinas - Last Filed: 03/16/22 16:06> Surgical History H/O tubal ligation History of section alcohol intake frequency: a few times a week Substance Use Type: does not use Exam <MICHEAL Salinas - Last Filed: 03/16/22 16:06> Narrative Exam Narrative: Independently reviewed vitals signs and nursing notes. General: cooperative, comfortable, in no acute distress, well developed and well groomed Head: atraumatic, symmetrical facial expressions Neck: supple, atraumatic, without lymphadenopathy. Eyes: pupils equal round and reactive, EOMI, conjunctiva normal Nose: nares patent, no rhinorrhea Mouth/Throat:moist mucus membranes Cardiovascular: regular rate and rhythm, no peripheral edema, warm extremities Respiratory: normal effort, able to speak in complete sentences, no audible wheezing, stridor, or rales. No retractions or tachypnea. GI: abdomen soft, nontender to palpation, nondistended, no masses, no exquisite tenderness with exam, without guarding or rebound. No CVA tenderness MSK: moves all extremities, ambulatory w/steady gait, neurovascularly intact, no weakness Skin: brisk capillary refill, no rash, no erythema Neuro: normal speech and cognition, A&O x3, normal tone Psych: mental status is grossly normal, congruent mood, normal affect, pleasant and cooperative Initial Vital Signs Initial Vital Signs: Vital Signs Temperature 97.2 F L 03/16/22 14:15 Pulse Rate 78 03/16/22 14:15 Respiratory Rate 18 03/16/22 14:15 Blood Pressure 122/64 03/16/22 14:15 Pulse Oximetry 98 03/16/22 14:15 <Cheryl Larose DO - Last Filed: 03/17/22 08:38> Initial Vital Signs Initial Vital Signs: Vital Signs Temperature 97.2 F L 03/16/22 14:15 Pulse Rate 78 03/16/22 14:15 Respiratory Rate 18 03/16/22 14:15 Blood Pressure 122/64 03/16/22 14:15 Pulse Oximetry 98 03/16/22 14:15 Course <MICHEAL Salinas - Last Filed: 03/16/22 16:06> Orders Ordered: Discontinued Medications Fluconazole (Fluconazole 100 Mg Tablet) 150 mg PO NOW ONE Stop: 03/16/22 15:41 Last Admin: 03/16/22 15:55 Dose: 150 mg Documented by: ROX Nitrofurantoin Macrocrystals (Nitrofurantoin Er 100 Mg Capsule) 100 mg PO NOW ONE Stop: 03/16/22 15:52 Last Admin: 03/16/22 15:56 Dose: 100 mg Documented by: ROX Phenazopyridine HCl (Phenazopyridine 100 Mg Tablet) 100 mg PO NOW ONE Stop: 03/16/22 15:41 Last Admin: 03/16/22 15:56 Dose: 100 mg Documented by: ROX Trimethoprim/Sulfamethoxazole (Trimeth/Sulfa 160/800 (Ds) Tablet) 1 tab PO NOW ONE Stop: 03/16/22 15:41 Last Admin: 03/16/22 15:59 Dose: Not Given Documented by: SANG Vital Signs Vital signs: Vital Signs - 8 hr 03/16/22 14:15 03/16/22 15:30 Temperature 97.2 F L 97.1 F L Pulse Rate 78 72 Respiratory Rate 18 18 Blood Pressure 122/64 111/66 Pulse Oximetry 98 99 <Cheryl Larose DO - Last Filed: 03/17/22 08:38> Orders Ordered: Discontinued Medications Fluconazole (Fluconazole 100 Mg Tablet) 150 mg PO NOW ONE Stop: 03/16/22 15:41 Last Admin: 03/16/22 15:55 Dose: 150 mg Documented by: ROX Nitrofurantoin Macrocrystals (Nitrofurantoin Er 100 Mg Capsule) 100 mg PO NOW ONE Stop: 03/16/22 15:52 Last Admin: 03/16/22 15:56 Dose: 100 mg Documented by: ROX Phenazopyridine HCl (Phenazopyridine 100 Mg Tablet) 100 mg PO NOW ONE Stop: 03/16/22 15:41 Last Admin: 03/16/22 15:56 Dose: 100 mg Documented by: ROX Trimethoprim/Sulfamethoxazole (Trimeth/Sulfa 160/800 (Ds) Tablet) 1 tab PO NOW ONE Stop: 03/16/22 15:41 Last Admin: 03/16/22 15:59 Dose: Not Given Documented by: SANG Vital Signs Vital signs: Vital Signs - 8 hr 03/16/22 14:15 03/16/22 15:30 Temperature 97.2 F L 97.1 F L Pulse Rate 78 72 Respiratory Rate 18 18 Blood Pressure 122/64 111/66 Pulse Oximetry 98 99 MDM - Female Genitourinary <MICHEAL Salinas - Last Filed: 03/16/22 16:06> Lab Data Labs: Lab Results 03/16/22 Range/Units 14:41 Urine Color Yellow Urine Appearance Clear Urine pH 5.5 (4.5-8.0) Ur Specific [place] 1.010 (1.000-1.035) Urine Protein Negative (Negative) Urine Glucose (UA) 3+ H (Negative) g/dL Urine Ketones Negative (NEGATIVE) Urine Occult Blood 3+ H (Negative) Urine Nitrate Negative (Negative) Urine Bilirubin Negative (NEGATIVE) Urine Urobilinogen 0.2 (0.2) E.U./dL Ur Leukocyte Esterase Negative (NEGATIVE) Urine RBC 5-10/hpf H (0-5/HPF) Urine WBC None seen (0-5/HPF) Urine Bacteria None seen (None) Urine Yeast 1-5/hpf H (None) Ur Culture Indicated? Specimen cultured Urine Dip Bedside Urine Glucose 1000 mg/dl Bedside Urine Bilirubin - Negative Bedside Urine Ketone - Negative Urine Specific [place] 1.015 Bedside Urine Occult Blood ++ Bedside Urine pH 6.0 Bedside Urine Protein - Negative Bedside Urine Urobilinogen - Negative Bedside Urine Nitrite - Negative Bedside Urine Leukocytes - Negative Esterase MDM Narrative Medical decision making narrative: This is a 51-year-old female presents to the emergency department complaining of urinary urgency, frequency, bladder pressure for approximately 1 month without hematuria or abnormal vaginal discharge. Patient states that she has a history of vaginal yeast infections, has had them with frequency over her life and was diagnosed with diabetes after multiple yeast infections a few years ago. Patient endorses a recent medication change of her Jardiance from 25mg down to 10mg, she states that she has had her bladder symptoms for approximately 1 what. Her urine today shows 3+ glucose, no ketones, 3+ blood and 1-5 [place]. Specimen was cultured, no leukocyte esterase or bacteria seen on microscopy. This is most likely a cystitis due to her high glucose content of her urine. Patient endorses her blood sugars being between 80 and 130 with a hemoglobin A1c drop from 8 down to 7.7 last month. Patient was given fluconazole today, encouraged to follow-up with her primary care provider, was treated with Macrobid due to patient's concern about bacteria and her history of diabetes being high risk for adverse outcome. Urine pending culture, patient given 3 doses of fluconazole at discharge and instructed how to use while having symptoms, encouraged to follow-up with her primary care provider in the next 1-2 days for recheck. Patient is appropriate and amenable to discharge home. Vital signs are stable on repeat examination is unremarkable. Patient has been informed of results. Patient has been given strict return to ER precautions for any new or worsening symptoms. Patient understands to follow up closely with outpatient providers as instructed. Patient understands plan and agrees to discharge home. All questions and concerns answered at this time. <Cheryl Larose, DO - Last Filed: 03/17/22 08:38> Lab Data Labs: Lab Results 03/16/22 Range/Units 14:41 Urine Color Yellow Urine Appearance Clear Urine pH 5.5 (4.5-8.0) Ur Specific [place] 1.010 (1.000-1.035) Urine Protein Negative (Negative) Urine Glucose (UA) 3+ H (Negative) g/dL Urine Ketones Negative (NEGATIVE) Urine Occult Blood 3+ H (Negative) Urine Nitrate Negative (Negative) Urine Bilirubin Negative (NEGATIVE) Urine Urobilinogen 0.2 (0.2) E.U./dL Ur Leukocyte Esterase Negative (NEGATIVE) Urine RBC 5-10/hpf H (0-5/HPF) Urine WBC None seen (0-5/HPF) Urine Bacteria None seen (None) Urine Yeast 1-5/hpf H (None) Ur Culture Indicated? Specimen cultured Urine Dip Bedside Urine Glucose 1000 mg/dl Bedside Urine Bilirubin - Negative Bedside Urine Ketone - Negative Urine Specific [place] 1.015 Bedside Urine Occult Blood ++ Bedside Urine pH 6.0 Bedside Urine Protein - Negative Bedside Urine Urobilinogen - Negative Bedside Urine Nitrite - Negative Bedside Urine Leukocytes - Negative Esterase Discharge Plan Departure Patient Disposition: Home Clinical Impression: Yeast cystitis Instructions: Nasima/Yeast Hypersensitivity Syndrome (Alternative Therapy), Vaginal Yeast Infection Activity Restrictions/Additional Instructions: *You have been diagnosed with yeast in your urine and a likely bladder infection from yeast. Please wait 3 days and take fluconazole, a still having symptoms, wait 3 days and take another 1. You may use topical antifungals as needed if you have any symptoms of itching. Please take the Macrobid for the next 5 days unless we call you before then about your urine culture. Please use the Pyridium as needed for the urinary urgency spasm pain. Please follow-up with your primary doctor, I hope that he is better soon, to hydrated your vital signs are reassuring, and this is likely not a systemic infection at this time. Please return to the emergency department if you develop high fevers nausea vomiting, or any worsening symptom. I wish you the best. *What to do: *Please continue to take your regular medications as directed. [x ] New medication prescriptions sent to your pharmacy: [ [facility]] [ ] New medication written as a paper prescription [ ] No new medications given *Please follow up with your primary care provider in 2-3 days, call for an appointment. Let them know you were seen in the Emergency Department and that we asked that you be seen for follow-up. We will electronically transmit a record of today's note if your PCP is in our system *If you do not have a primary care provider please contact [phone] to establish care with one of the [facility] primary care providers. *Return to Emergency Department if you should have any new, worsening or concerning symptoms, such as [fever greater than 101F, chills, worsening pain, persistent vomiting or other bothersome symptoms] Prescriptions: New fluconazole 150 mg tablet 150 mg PO Q3D PRN (Reason: yeast symptoms) 9 Days Qty: 3 0RF nitrofurantoin monohyd/m-cryst [Macrobid] 100 mg capsule 100 mg PO BID 5 Days Qty: 10 0RF Rx Instructions: must administer with a meal/food phenazopyridine [Pyridium] 100 mg tablet 100 mg PO TID PRN (Reason: pain) Qty: 7 0RF No Action metformin 500 mg tablet 2,000 mg PO DAILY 0RF Victoza 2-Javed 0.6 mg/0.1 mL (18 mg/3 mL) pen injector 0.6 mg SUBCUT DAILY 0RF citalopram 40 mg tablet 40 mg PO DAILY 0RF Jardiance 25 mg tablet 25 mg PO DAILY 0RF Referrals: Angie Colmenares PA-C [Advanced Resource Management Specialist] - Miscellaneous,MD Chuy [Primary Care Provider] - <Cheryl Larose DO - Last Filed: 03/17/22 08:38> Cosign ED Attending Cosignature Attestation: I was immediately available in the department for consultation. Documentation has been reviewed. I agree with assessment and plan.
== END 2022-03-16 16:02 | disposition home or self-care (01) ==
PROVIDERS: Emergency Medicine; Emergency Provider Nurse Practitioner Critical Care Medicine
DX: B37.41 Candidal cystitis and urethritis (principal)
CPT/HCPCS: 81001; 81003; 87086; 99283

== ENCOUNTER 2022-04-27 15:14 | Emergency (ER) | payer OTHER, SELFPAY ==
[2022-04-27] VITALS (8 sets, daily range): BP systolic 116–140; BP diastolic 59–79; PULSE 70–84; RESP 10–18; TEMP 36.5; O2SAT 97–100; BMI 29.2
[2022-04-27] MEDS: ONDANSETRON 4 MG/2 ML INJ IV (16:41)
[2022-04-27 16:45] LABS: Add Manual Diff / Slide Review NO; Basophils Absolute Auto 100 /uL (0-100); Basophils Percent Auto 1.3 % (0-2); Eosinophils Absolute Auto 200 /uL (0-450); Eosinophils Percent Auto 2.6 % (2-4); Hematocrit 40.8 % (36-46); Lymphocytes Absolute Auto 4300 /uL (1100-4500); Lymphocytes Percent Auto 50.4 % (25-40); Mean Corpuscular HGB Conc 34.3 % (30-36); Mean Corpuscular Hemoglobin 30.7 PG (26-34); Mean Corpuscular Volume 89.5 fL (80-100); Monocytes Absolute Auto 500 /uL (0-900); Monocytes Percent Auto 5.5 % (3-14); Neutrophils Absolute Auto 3400 /uL (1500-7000); Neutrophils Percent Auto 40.2 % (50-75); Platelet Count 223 X10^3/uL (150-400); Red Blood Cell Count 4.56 X10^6/uL (4.0-5.2); Red Cell Distribution Width 13.7 % (11.6-14.8); White Blood Cell Count 8.6 X10^3/uL (4.5-11.0)
--- NOTE | 2022-04-27 16:52 | DI.CT.S_ITS ---
PROCEDURE: CT ABDOMEN PELVIS W CON INDICATIONS: RLQ pain, tender to palp w/rebound, c/f appy, hx cholecystectomy TECHNIQUE: After the administration of oral and IV contrast, axial sections were acquired from the lung bases to the pubic symphysis. Coronal and sagittal reformats were performed. For radiation dose reduction, the following was used: automated exposure control, adjustment of mA and/or kV according to patient size. COMPARISON: [facility], CT, ABDOMEN/PELVIS WITH CONTRAST, 03/19/2016, 21:33. FINDINGS: Image quality: Excellent. Lung bases: Unremarkable. Heart: No significant findings. ABDOMEN: Liver: An enlarged, fatty infiltrated liver can be seen. No focally suspicious liver lesions are seen. Gallbladder: Removed. Biliary ducts: Unremarkable. Pancreas: Unremarkable. Spleen: Unremarkable. Adrenal Glands: There is a right adrenal nodule seen, as on series 2, image 19 measuring 1.3 cm. On this contrast enhanced examination is measures 70 Hounsfield units. This nodule is new compared to 2016. No left adrenal nodule is seen. Kidneys and Ureters: Unremarkable. Stomach and Bowel: In this patient with this given history, scrutiny is given to the appendix. The cecum is high-riding. No appendix (either normal or abnormal) is identified on this study. No focal right lower quadrant inflammatory changes are seen. Stomach, small bowel loops, and colon are unremarkable. Peritoneum: No abnormal intraperitoneal fluid. No free air. Ventral Wall: Rectus diastasis is seen, with mild protrude Wilfrido of the abdominal contents, yet without obi hernia. Abdominal Nodes: No retroperitoneal or mesenteric adenopathy by size criteria. Vessels: Aorta and inferior vena cava are normal in size. PELVIS: Pelvic Organs: Within the cervix of the uterus, there is low-density structure without abnormal vascularity that measures 17 mm. No adnexal masses are seen on either side. Bladder: Unremarkable. Pelvic Nodes: No enlarged lymph nodes. Miscellaneous: No inguinal hernias are seen. Bones: Unremarkable. IMPRESSION: High-riding cecum, without an appendix seen. No focal right lower quadrant inflammatory changes are seen. There is a new 1.3 cm nodule involving the right adrenal gland. When clinically appropriate, please consider a follow-up adrenal protocol MRI or CT for further evaluation. There is a 17 mm low-density lesion involving the cervix of the uterus. This is similar to 2016. Please consider a follow-up pelvic ultrasound, if clinically appropriate. Incidental note is made of: Enlarged, fatty liver Cholecystectomy Rectus diastasis Dictated by: Hill Torres M.D. on 04/27/2022 at 16:35 Approved by: Hill Torres M.D. on 04/27/2022 at 16:39
--- NOTE | 2022-04-27 17:04 | ED_ITS ---
HPI - Abdominal Pain <MICHEAL Salinas - Last Filed: 04/27/22 19:40> General Chief Complaint: Abdominal Pain Stated Complaint: STOMACH PAIN Time Seen by Provider: 04/27/22 16:40 Source: patient Mode of arrival: Ambulatory History of Present Illness HPI narrative: This is a 51-year-old female with history of diabetes, depression, cholecystectomy and two abdominal hernia surgeries who presents to the emergency department complaining of right lower quadrant pain which she says started approximately two weeks ago on 03/16/2022 with a UTI. Patient states that she has had ongoing urgency, flank pain on the right side, states her urine had a strong odor yesterday, bladder pressure and pain. She states that she has had a bowel movement each day but has also had nausea. She denies any fever, chills, cough, chest pain or blood in her urine or her stool.. Related Data Home Medications Medication Instructions Recorded Confirmed citalopram 40 mg tablet 40 mg PO DAILY 05/04/21 05/14/21 liraglutide 0.6 mg/0.1 mL (18 mg/3 0.6 mg SUBCUT DAILY 05/04/21 05/14/21 mL) subcutaneous pen injector (Victoza 2-Javed) metformin 500 mg tablet 2,000 mg PO DAILY 05/04/21 05/14/21 empagliflozin 25 mg tablet 25 mg PO DAILY 01/12/22 01/12/22 (Jardiance) Previous Rx's Medication Instructions Recorded phenazopyridine 100 mg tablet 100 mg PO TID PRN pain 6 doses #7 03/16/22 (Pyridium) tabs hydrocodone 5 mg-acetaminophen 325 1 tab PO BID PRN pain #10 tabs 04/27/22 mg tablet sulfamethoxazole 800 1 tab PO BID 1 week #14 tabs 04/27/22 mg-trimethoprim 160 mg tablet (Bactrim DS) Allergies Allergy/AdvReac Type Severity Reaction Status Date / Time codeine [CODEINE] Allergy Mild NAUSEA, Verified 01/12/22 09:10 SLEEP ATTACK exenatide [From Bydureon] AdvReac Severe rash Verified 01/12/22 09:10 Review of Systems <MICHEAL Salinas - Last Filed: 04/27/22 19:40> Review of Systems Narrative: General: denies fever, chills Head/Neck: denies headache, neck pain Eyes: denies visual changes, eye pain Cardio: denies chest pain, palpitations Respiratory: denies shortness of breath, cough GI: Endorses right lower quadrant abdominal pain and nausea, denies any vomiting, or diarrhea : Endorses urinary frequency, urgency, bladder pressure, right-sided flank pain, urine odor, denies any blood in her urine MSK: denies new joint pain, muscle weakness or swelling Skin: denies rash, itching or wound Neuro: denies numbness, tingling, dizziness Patient History <MICHEAL Salinas - Last Filed: 04/27/22 19:40> Surgical History H/O tubal ligation History of section Social History household members: spouse Smoking Status: Never smoker alcohol intake: current Smoking Status: Never smoker alcohol intake frequency: a few times a month Substance Use Type: does not use Exam <MICHEAL Salinas - Last Filed: 04/27/22 19:40> Narrative Exam Narrative: Independently reviewed vitals signs and nursing notes. General: cooperative, comfortable, in no acute distress, well groomed Head: atraumatic, symmetrical facial expressions Neck: supple Eyes: equal round and reactive, EOMI, conjunctiva normal Nose: nares patent, no rhinorrhea Mouth/Throat: moist mucus membranes Cardiovascular: regular rate and rhythm, no peripheral edema, warm extremities Respiratory: normal effort, able to speak in complete sentences, no audible wheezing, stridor, or rales. No retractions or tachypnea. GI: abdomen soft, tender to palpation over McBurney's point, positive psoas and obturator's sign, positive rebound, patient guarding, nondistended, no masses. MSK: moves all extremities, neurovascularly intact, no weakness, normal tone Skin: brisk capillary refill, no rash, no erythema Neuro: normal speech and cognition, A&O x3 Psych: mental status is grossly normal, congruent mood, normal affect, pleasant and cooperative Initial Vital Signs Initial Vital Signs: Vital Signs Temperature 97.7 F 04/27/22 15:27 Pulse Rate 84 06/15/22 15:27 Respiratory Rate 18 04/27/22 15:27 Blood Pressure 116/79 04/27/22 15:27 Pulse Oximetry 99 04/27/22 15:27 Oxygen Delivery Method 04/27/22 15:27 <Courtney Butcher MD - Last Filed: 05/01/22 08:54> Initial Vital Signs Initial Vital Signs: Vital Signs Temperature 97.7 F 04/27/22 15:27 Pulse Rate 84 04/27/22 15:27 Respiratory Rate 18 04/27/22 15:27 Blood Pressure 116/79 04/27/22 15:27 Pulse Oximetry 99 04/27/22 15:27 Oxygen Delivery Method 04/27/22 15:27 Course <MICHEAL Salinas - Last Filed: 04/27/22 19:40> Orders Ordered: Discontinued Medications Hydromorphone HCl (Hydromorphone 0.5 Mg Inj) 0.5 mg IV NOW ONE Stop: 04/27/22 16:53 Last Admin: 04/27/22 17:17 Dose: 0.5 mg Documented By: LUCILLE Ketorolac Tromethamine (Ketorolac 30 Mg/Ml Vial) 15 mg IV NOW ONE Stop: 04/27/22 16:53 Last Admin: 04/27/22 17:16 Dose: 15 mg Documented By: LUCILLE Ondansetron HCl (Ondansetron 4 Mg/2 Ml Inj) 4 mg IV NOW ONE Stop: 04/27/22 16:30 Last Admin: 04/27/22 16:41 Dose: 4 mg Documented By: LUCILLE Trimethoprim/Sulfamethoxazole (Trimeth/Sulfa 160/800 (Ds) Tablet) 1 tab PO NOW ONE Stop: 04/27/22 17:47 Last Admin: 04/27/22 18:05 Dose: 1 tab Documented By: HECTOR Vital Signs Vital signs: Vital Signs - 8 hr 04/27/22 15:27 04/27/22 16:39 04/27/22 16:42 Temperature 97.7 F Pulse Rate 84 79 Respiratory Rate 18 Blood Pressure 116/79 125/59 L Pulse Oximetry 99 99 Oxygen Delivery Method Room Air 04/27/22 16:42 04/27/22 17:00 04/27/22 17:23 Temperature Pulse Rate 74 76 Respiratory Rate 18 18 Blood Pressure 140/71 Pulse Oximetry 98 98 Oxygen Delivery Method 04/27/22 17:23 04/27/22 17:30 04/27/22 17:31 Temperature Pulse Rate 71 77 75 Respiratory Rate 10 L 12 10 L Blood Pressure Pulse Oximetry 100 99 99 Oxygen Delivery Method 04/27/22 17:31 04/27/22 18:00 04/27/22 18:00 Temperature Pulse Rate 70 Respiratory Rate 14 Blood Pressure 134/62 116/70 Pulse Oximetry 97 Oxygen Delivery Method <Courtney Butcher MD - Last Filed: 05/01/22 08:54> Orders Ordered: Discontinued Medications Hydromorphone HCl (Hydromorphone 0.5 Mg Inj) 0.5 mg IV NOW ONE Stop: 04/27/22 16:53 Last Admin: 04/27/22 17:17 Dose: 0.5 mg Documented By: LUCILLE Ketorolac Tromethamine (Ketorolac 30 Mg/Ml Vial) 15 mg IV NOW ONE Stop: 04/27/22 16:53 Last Admin: 04/27/22 17:16 Dose: 15 mg Documented By: LUCILLE Ondansetron HCl (Ondansetron 4 Mg/2 Ml Inj) 4 mg IV NOW ONE Stop: 04/27/22 16:30 Last Admin: 04/27/22 16:41 Dose: 4 mg Documented By: LUCILLE Trimethoprim/Sulfamethoxazole (Trimeth/Sulfa 160/800 (Ds) Tablet) 1 tab PO NOW ONE Stop: 04/27/22 17:47 Last Admin: 04/27/22 18:05 Dose: 1 tab Documented By: HECTOR Vital Signs Vital signs: Vital Signs - 8 hr 04/27/22 15:27 04/27/22 16:39 04/27/22 16:42 Temperature 97.7 F Pulse Rate 84 79 Respiratory Rate 18 Blood Pressure 116/79 125/59 L Pulse Oximetry 99 99 Oxygen Delivery Method Room Air 04/27/22 16:42 04/27/22 17:00 04/27/22 17:23 Temperature Pulse Rate 74 76 Respiratory Rate 18 18 Blood Pressure 140/71 Pulse Oximetry 98 98 Oxygen Delivery Method 04/27/22 17:23 04/27/22 17:30 04/27/22 17:31 Temperature Pulse Rate 71 77 75 Respiratory Rate 10 L 12 10 L Blood Pressure Pulse Oximetry 100 99 99 Oxygen Delivery Method 04/27/22 17:31 04/27/22 18:00 04/27/22 18:00 Temperature Pulse Rate 70 Respiratory Rate 14 Blood Pressure 134/62 116/70 Pulse Oximetry 97 Oxygen Delivery Method MDM - Abdominal Pain <Wendi Monteronoreen, [facility] - Last Filed: 04/27/22 19:40> Lab Data Result diagrams: 04/27/22 16:35 04/27/22 16:35 Labs: Lab Results 04/27/22 04/27/22 04/27/22 Range/Units 15:33 16:35 16:35 WBC 8.6 (4.5-11.0) X10^3/uL RBC 4.56 (4.0-5.2) X10^6/uL Hgb 14.0 (12.0-16.0) g/dL Hct 40.8 (36-46) % MCV 89.5 (80-100) fL MCH 30.7 (26-34) PG MCHC 34.3 (30-36) % RDW 13.7 (11.6-14.8) % Plt Count 223 (150-400) X10^3/uL Neut % (Auto) 40.2 L (50-75) % Lymph % (Auto) 50.4 H (25-40) % [place] % (Auto) 5.5 (3-14) % Eos % (Auto) 2.6 (2-4) % Baso % (Auto) 1.3 (0-2) % Neut # (Auto) 3400 (4189-1999) /uL Lymph # (Auto) 4300 (8725-6886) /uL [place] # (Auto) 500 (0-900) /uL Eos # (Auto) 200 (0-450) /uL Baso # (Auto) 100 (0-100) /uL Sodium 135 L (137-145) mmol/L Potassium 4.3 (3.4-5.1) mmol/L Chloride 98 (98-107) mmol/L Carbon Dioxide 28 (22-32) mmol/L BUN 11 (7-17) mg/dL Creatinine 0.59 (0.52-1.04) mg/dL Estimated GFR > 60 (>60) mL/min BUN/Creatinine Ratio 18.6 (6-22) Glucose 158 H (70-100) mg/dL Calcium 10.1 (8.4-10.2) mg/dL Total Bilirubin 1.3 (0.2-1.3) mg/dL AST 48 H (14-36) IU/L ALT 54 H (<35) IU/L Alkaline Phosphatase 75 (38-126) U/L C-Reactive Protein (<1.0) mg/dL Total Protein 7.6 (6.3-8.2) g/dL Albumin 4.6 (3.5-5.0) g/dL Globulin 3.0 (1.7-4.1) g/dL Albumin/Globulin Ratio 1.5 (1.0-2.8) Lipase 198 (23-300) U/L Procalcitonin (<0.5) ng/mL Urine RBC 0-1/hpf (0-5/HPF) Urine WBC 5-10/hpf H (0-5/HPF) Ur Squamous Epith Cells 0-1 /hpf (0-5/HPF) Ur Transition Epith Cell 0-1/hpf (0-5/HPF) Urine Bacteria Moderate (10-30) H (None) Ur Culture Indicated? Specimen cultured 04/27/22 04/27/22 Range/Units 16:35 16:35 WBC (4.5-11.0) X10^3/uL RBC (4.0-5.2) X10^6/uL Hgb (12.0-16.0) g/dL Hct (36-46) % MCV (80-100) fL MCH (26-34) PG MCHC (30-36) % RDW (11.6-14.8) % Plt Count (150-400) X10^3/uL Neut % (Auto) (50-75) % Lymph % (Auto) (25-40) % [place] % (Auto) (3-14) % Eos % (Auto) (2-4) % Baso % (Auto) (0-2) % Neut # (Auto) (1115-8683) /uL Lymph # (Auto) (3076-9581) /uL [place] # (Auto) (0-900) /uL Eos # (Auto) (0-450) /uL Baso # (Auto) (0-100) /uL Sodium (137-145) mmol/L Potassium (3.4-5.1) mmol/L Chloride (98-107) mmol/L Carbon Dioxide (22-32) mmol/L BUN (7-17) mg/dL Creatinine (0.52-1.04) mg/dL Estimated GFR (>60) mL/min BUN/Creatinine Ratio (6-22) Glucose (70-100) mg/dL Calcium (8.4-10.2) mg/dL Total Bilirubin (0.2-1.3) mg/dL AST (14-36) IU/L ALT (<35) IU/L Alkaline Phosphatase (38-126) U/L C-Reactive Protein < 0.5 (<1.0) mg/dL Total Protein (6.3-8.2) g/dL Albumin (3.5-5.0) g/dL Globulin (1.7-4.1) g/dL Albumin/Globulin Ratio (1.0-2.8) Lipase (23-300) U/L Procalcitonin 0.06 (<0.5) ng/mL Urine RBC (0-5/HPF) Urine WBC (0-5/HPF) Ur Squamous Epith Cells (0-5/HPF) Ur Transition Epith Cell (0-5/HPF) Urine Bacteria (None) Ur Culture Indicated? Point of care testing: Urine Dip Bedside Urine Glucose Negative Bedside Urine Bilirubin - Negative Bedside Urine Ketone - Negative Urine Specific [place] 1.015 Bedside Urine Occult Blood - Negative Bedside Urine pH 6.0 Bedside Urine Protein - Negative Bedside Urine Urobilinogen - Negative Bedside Urine Nitrite - Negative Bedside Urine Leukocytes - Negative Esterase Imaging Data CT scan - abdomen/pelvis: Radiologist's Impression: PROCEDURE:? CT ABDOMEN PELVIS W CON ? INDICATIONS:? RLQ pain, tender to palp w/rebound, c/f appy, hx cholecystectomy ? TECHNIQUE:? After the administration of oral and IV contrast, axial sections were acquired from the lung bases to the pubic symphysis.? Coronal and sagittal reformats were performed.? For radiation dose reduction, the following was used:? automated exposure control, adjustment of mA and/or kV according to patient size. ? COMPARISON:? [facility], CT, ABDOMEN/PELVIS WITH CONTRAST, 03/19/2016, 21 :33. ? FINDINGS:? Image quality:? Excellent.? ? Lung bases:? Unremarkable.? ? Heart:? No significant findings. ? ? ABDOMEN: Liver:? An enlarged, fatty infiltrated liver can be seen.? No focally suspicious liver lesions are seen. Gallbladder:? Removed.? ? Biliary ducts:? Unremarkable.? ? Pancreas:? Unremarkable.? ? Spleen:? Unremarkable.? ? Adrenal Glands:? There is a right adrenal nodule seen, as on series 2, image 19 measuring 1.3 cm.? On this contrast enhanced examination is measures 70 Hounsfield units.? This nodule is new compared to 2016.? No left adrenal nodule is seen. Kidneys and Ureters:? Unremarkable.? ? ? Stomach and Bowel:? In this patient with this given history, scrutiny is given to the appendix.? The cecum is high-riding.? No appendix (either normal or abnormal) is identified on this study.? No focal right lower quadrant inflammatory changes are seen.? Stomach, small bowel loops, and colon are unremarkable.? Peritoneum:? No abnormal intraperitoneal fluid.? No free air.? ? Ventral Wall:? Rectus diastasis is seen, with mild protrude Wilfrido of the abdominal contents, yet without obi hernia. Abdominal Nodes:? No retroperitoneal or mesenteric adenopathy by size criteria.? Vessels:? Aorta and inferior vena cava are normal in size.? ? PELVIS: Pelvic Organs:? Within the cervix of the uterus, there is low-density structure without abnormal vascularity that measures 17 mm.? No adnexal masses are seen on either side.? Bladder:? Unremarkable.? ? Pelvic Nodes: No enlarged lymph nodes.? Miscellaneous: No inguinal hernias are seen. ? ? ? Bones:? Unremarkable.? IMPRESSION:? ? High-riding cecum, without an appendix seen.? No focal right lower quadrant inflammatory changes are seen. ? There is a new 1.3 cm nodule involving the right adrenal gland.? When clinically appropriate, please consider a follow-up adrenal protocol MRI or CT for further evaluation. ? There is a 17 mm low-density lesion involving the cervix of the uterus.? This is similar to 2016. Please consider a follow-up pelvic ultrasound, if clinically appropriate. ? ? Incidental note is made of: Enlarged, fatty liver Cholecystectomy Rectus diastasis ? Dictated by: Hill Torres M.D. on 04/27/2022 at 16:35 ? ? Approved by: Hill Torres M.D. on 04/27/2022 at 16:39 ? MDM Narrative Medical decision making narrative: This is a 51-year-old female with history of diabetes, cholecystectomy, known cyst on her cervix and is pending total hysterectomy and two prior abdominal hernia surgeries who presents to the emergency department complaining of right lower quadrant pain and tenderness since she was diagnosed with the bladder infection approximately two weeks ago. Patient had a urine culture from 03/16/2022 which grew out mixed Gram-positive marion and patient was not treated for any bladder infection at that time. Patient states that over the last two weeks she has had urinary urgency, frequency, right-sided flank pain and abdominal pain. She denies any relation of pain to food, states that she has occasional sharp twinges of pain. CT abdomen pelvis with contrast was obtained with concern for appendicitis as patient was guarding, had tenderness at McBurney's point, positive psoas and obturator signs with rebound tenderness. CT report shows a high-riding cecum without an appendix visualized, no focal right lower quadrant inflammatory changes are seen, there is a new 1.3 cm nodule involving the right adrenal gland. Patient was updated about this and will follow-up with her primary care provider, additionally there was a 17 mm low- density lesion involving the cervix of the uterus. Patient is aware of this also and is pending a total hysterectomy. Patient is afebrile, nontoxic appearing, without tachycardia, tachypnea, chills, nausea vomiting. Lab work is reassuring as well, no leukocytosis, urine microscopy shows wbc's and bacteria, this was cultured. Because patient is symptomatic, and there is bacteria and leukocytes in her urine, opted to treat her for complicated UTI since she has been having symptoms now for approximately one month. Will follow-up on urine culture, she was treated with Bactrim b.i.d. x7 days, she was also prescribed Pyridium for urinary urgency spasm. Patient understands to follow-up with her primary care provider for any ongoing symptoms, she was given strict return precautions. No peritoneal signs on abdominal exam. Patient remains p.o. tolerant. Serial abdominal exam without increase in abdominal pain. Given history and exam, low suspicion for acute abdominal process, such as acute pancreatitis, perforated viscus, atypical appendicitis, colitis, diverticulitis or torsion. Extensive conversation about ER return precautions and need for cl ose follow-up. Patient is appropriate and amenable to discharge home. Vital signs are stable on repeat examination is unremarkable. Patient has been informed of results. Patient has been given strict return to ER precautions for any new or worsening symptoms. Patient understands to follow up closely with outpatient providers as instructed. Patient understands plan and agrees to discharge home. All questions and concerns answered at this time. <Courtney Butcher MD - Last Filed: 05/01/22 08:54> Lab Data Labs: Lab Results 04/27/22 04/27/22 04/27/22 Range/Units 15:33 16:35 16:35 WBC 8.6 (4.5-11.0) X10^3/uL RBC 4.56 (4.0-5.2) X10^6/uL Hgb 14.0 (12.0-16.0) g/dL Hct 40.8 (36-46) % MCV 89.5 (80-100) fL MCH 30.7 (26-34) PG MCHC 34.3 (30-36) % RDW 13.7 (11.6-14.8) % Plt Count 223 (150-400) X10^3/uL Neut % (Auto) 40.2 L (50-75) % Lymph % (Auto) 50.4 H (25-40) % [place] % (Auto) 5.5 (3-14) % Eos % (Auto) 2.6 (2-4) % Baso % (Auto) 1.3 (0-2) % Neut # (Auto) 3400 (5828-8531) /uL Lymph # (Auto) 4300 (4939-7026) /uL [place] # (Auto) 500 (0-900) /uL Eos # (Auto) 200 (0-450) /uL Baso # (Auto) 100 (0-100) /uL Sodium 135 L (137-145) mmol/L Potassium 4.3 (3.4-5.1) mmol/L Chloride 98 (98-107) mmol/L Carbon Dioxide 28 (22-32) mmol/L BUN 11 (7-17) mg/dL Creatinine 0.59 (0.52-1.04) mg/dL Estimated GFR > 60 (>60) mL/min BUN/Creatinine Ratio 18.6 (6-22) Glucose 158 H (70-100) mg/dL Calcium 10.1 (8.4-10.2) mg/dL Total Bilirubin 1.3 (0.2-1.3) mg/dL AST 48 H (14-36) IU/L ALT 54 H (<35) IU/L Alkaline Phosphatase 75 (38-126) U/L C-Reactive Protein (<1.0) mg/dL Total Protein 7.6 (6.3-8.2) g/dL Albumin 4.6 (3.5-5.0) g/dL Globulin 3.0 (1.7-4.1) g/dL Albumin/Globulin Ratio 1.5 (1.0-2.8) Lipase 198 (23-300) U/L Procalcitonin (<0.5) ng/mL Urine RBC 0-1/hpf (0-5/HPF) Urine WBC 5-10/hpf H (0-5/HPF) Ur Squamous Epith Cells 0-1 /hpf (0-5/HPF) Ur Transition Epith Cell 0-1/hpf (0-5/HPF) Urine Bacteria Moderate (10-30) H (None) Ur Culture Indicated? Specimen cultured 04/27/22 04/27/22 Range/Units 16:35 16:35 WBC (4.5-11.0) X10^3/uL RBC (4.0-5.2) X10^6/uL Hgb (12.0-16.0) g/dL Hct (36-46) % MCV (80-100) fL MCH (26-34) PG MCHC (30-36) % RDW (11.6-14.8) % Plt Count (150-400) X10^3/uL Neut % (Auto) (50-75) % Lymph % (Auto) (25-40) % [place] % (Auto) (3-14) % Eos % (Auto) (2-4) % Baso % (Auto) (0-2) % Neut # (Auto) (4112-9189) /uL Lymph # (Auto) (3254-5251) /uL [place] # (Auto) (0-900) /uL Eos # (Auto) (0-450) /uL Baso # (Auto) (0-100) /uL Sodium (137-145) mmol/L Potassium (3.4-5.1) mmol/L Chloride (98-107) mmol/L Carbon Dioxide (22-32) mmol/L BUN (7-17) mg/dL Creatinine (0.52-1.04) mg/dL Estimated GFR (>60) mL/min BUN/Creatinine Ratio (6-22) Glucose (70-100) mg/dL Calcium (8.4-10.2) mg/dL Total Bilirubin (0.2-1.3) mg/dL AST (14-36) IU/L ALT (<35) IU/L Alkaline Phosphatase (38-126) U/L C-Reactive Protein < 0.5 (<1.0) mg/dL Total Protein (6.3-8.2) g/dL Albumin (3.5-5.0) g/dL Globulin (1.7-4.1) g/dL Albumin/Globulin Ratio (1.0-2.8) Lipase (23-300) U/L Procalcitonin 0.06 (<0.5) ng/mL Urine RBC (0-5/HPF) Urine WBC (0-5/HPF) Ur Squamous Epith Cells (0-5/HPF) Ur Transition Epith Cell (0-5/HPF) Urine Bacteria (None) Ur Culture Indicated? Point of care testing: Urine Dip Bedside Urine Glucose Negative Bedside Urine Bilirubin - Negative Bedside Urine Ketone - Negative Urine Specific [place] 1.015 Bedside Urine Occult Blood - Negative Bedside Urine pH 6.0 Bedside Urine Protein - Negative Bedside Urine Urobilinogen - Negative Bedside Urine Nitrite - Negative Bedside Urine Leukocytes - Negative Esterase Discharge Plan Departure Patient Disposition: Home Clinical Impression: Complicated UTI (urinary tract infection), Adrenal nodule, Lesion of cervix Instructions: DI for Urinary Tract Infection (UTI) Activity Restrictions/Additional Instructions: *You have been diagnosed with a complicated urinary tract infection, which is likely causing your pain. Incidentally, on your CT scan there is a 1.3 cm nodule involving the right adrenal gland, please follow-up with your primary doctor about this. Also there is a 17 mm cyst or lesion on the cervix of the uterus and is similar to 2016. Do not worry about that since you are having that take care. Your lab work is reassuring that you do not have a bloodstream infection at this point, your liver enzymes are mildly elevated which may be a normal finding with a slightly enlarged liver. The liver becomes infiltrated with adipose tissue and is called fatty liver disease, and as people age, it usually gets bigger and there liver enzymes start to go up. They are slightly above your last evaluation. Try to reduce fat in your diet for the next couple of days to see if this also helps with your pain and brings her enzymes down. Please stay hydrated, take Tylenol, ibuprofen, hydrocodone as needed for your pain or symptoms. Remember to take stool softeners if your taking pain. Please take this antibiotic twice a day for the next seven days. *What to do: *Please continue to take your regular medications as directed. [x ] New medication prescriptions sent to your pharmacy: [[facility] ] [ ] New medication written as a paper prescription [ ] No new medications given *Please follow up with your primary care provider in 2-3 days, call for an appointment. Let them know you were seen in the Emergency Department and that we asked that you be seen for follow-up. We will electronically transmit a record of today's note if your PCP is in our system *If you do not have a primary care provider please contact [phone] to establish care with one of [facility] primary care providers. *Return to Emergency Department if you should have any new, worsening or concerning symptoms, such as [fever greater than 101F, chills, worsening pain, persistent vomiting or other bothersome symptoms] Prescriptions: New sulfamethoxazole-trimethoprim [Bactrim DS] 800-160 mg tablet 1 tab PO BID 7 Days Qty: 14 0RF hydrocodone-acetaminophen 5-325 mg tablet 1 tab PO BID PRN (Reason: pain) Qty: 10 0RF No Action metformin 500 mg tablet 2,000 mg PO DAILY Victoza 2-Javed 0.6 mg/0.1 mL (18 mg/3 mL) pen injector 0.6 mg SUBCUT DAILY citalopram 40 mg tablet 40 mg PO DAILY Jardiance 25 mg tablet 25 mg PO DAILY phenazopyridine [Pyridium] 100 mg tablet 100 mg PO TID PRN (Reason: pain) Qty: 7 0RF Visit Report Forms: Patient Portal/API <Courtney Butcher MD - Last Filed: 05/01/22 08:54> Cosign ED Attending Alvaradoature Attestation: I was immediately available in the department for consultation throughout this patient's visit. I agree with documentation as above. Courtney Butcher MD
[2022-04-27 17:13] LABS: Alanine Aminotransferase 54 IU/L (<35); Albumin 4.6 g/dL (3.5-5.0); Albumin Globulin Ratio 1.5 (1.0-2.8); Alkaline Phosphatase 75 U/L (38-126); Aspartate Aminotransferase 48 IU/L (14-36); BUN Creatinine Ratio 18.6 (6-22); Bilirubin Total 1.3 mg/dL (0.2-1.3); Blood Urea Nitrogen 11 mg/dL (7-17); Calcium 10.1 mg/dL (8.4-10.2); Carbon Dioxide 28 mmol/L (22-32); Chloride 98 mmol/L (98-107); Estimated Glomerular Filt Rate > 60 mL/min (>60); Glucose 158 mg/dL (70-100); HEMOLYSIS < 15 (0-50); Lipase 198 U/L (23-300); Potassium 4.3 mmol/L (3.4-5.1); Sodium 135 mmol/L (137-145); Total Protein 7.6 g/dL (6.3-8.2)
[2022-04-27] MEDS: KETOROLAC 30 MG/ML VIAL 15 MG IV (17:16)
[2022-04-27] MEDS: HYDROMORPHONE 0.5 MG INJ IV (17:17)
[2022-04-27 17:35] LABS: Bacteria Urine Moderate (10-30); Culture Indicated Urine Specimen Cultured; RBC Urine 0-1/HPF (0-5/HPF); Squamous Epithelial Cell Urine 0-1 /HPF (0-5/HPF); Transitional Epi Cells Urine 0-1/HPF (0-5/HPF); WBC Urine 5-10/HPF (0-5/HPF)
[2022-04-27] MEDS: TRIMETH/SULFA 160/800 (DS) TABLET 1 TAB PO (18:05)
[2022-04-27 23:55] LABS: C-Reactive Protein Quant < 0.5 mg/dL (<1.0)
[2022-04-28 00:09] LABS: Procalcitonin 0.06 ng/mL (<0.5)
== END 2022-04-27 18:14 | disposition home or self-care (01) ==
PROVIDERS: Emergency Medicine; Emergency Provider Nurse Practitioner Critical Care Medicine
DX: N39.0 Urinary tract infection, site not specified (principal); E27.8 Other specified disorders of adrenal gland; N88.9 Noninflammatory disorder of cervix uteri, unspecified
CPT/HCPCS: 36415; 74177; 80053; 81003; 81015; 83690; 84145; 85025; 86140; 87086; 96374; 96375; 99284; J1170; J1885; J2405; Q9967

== ENCOUNTER → 2022-08-17 15:54 | Outpatient (CLI) | payer OTHER, SELFPAY ==
[2022-08-17 17:47] LABS: COVID19 -Nasal RAPID Negative (Negative)
== END ==
PROVIDERS: PCP Physician Assistant; Visit Provider Obstetrics & Gynecology
DX: Z01.812 Encounter for preprocedural laboratory examination (principal); Z20.822 Contact with and (suspected) exposure to COVID-19
CPT/HCPCS: 87635; C9803

== ENCOUNTER 2022-08-18 10:32 | Day surgery (SDC) | payer OTHER, SELFPAY ==
[2022-08-15 08:42] VITALS: BMI 30.4
[2022-08-18] VITALS (13 sets, daily range): BP systolic 93–116; BP diastolic 50–65; PULSE 74–95; RESP 9–20; TEMP 35.6–36.5; O2SAT 94–99; BMI 31.1
--- NOTE | 2022-08-18 | PATH_ITS ---
[facility] Accession Number: [id number] . 01 Material submitted: . uterus - UTERUS,BILATERAL FALLOPIAN TUBES . 01 Diagnosis: A. Uterus, Bilateral Fallopian Tubes, Supracervical Hysterectomy and Bilateral Salpingectomy: Myometrium with adenomyosis and leiomyomas (up to 1.4 cm). Late secretory phase endometrium with focal polypoid change. Bilateral fallopian tubes with reactive changes. Negative for dysplasia, endometrioid intraepithelial neoplasia, and malignancy. MRV 08/23/2022 1630 Local . 01 Electronically signed: . Livier Marin MD, Pathologist NPI- [id number] . 01 Gross description: . The specimen is received in formalin, labeled with the patient's name and uterus, bilateral fallopian tubes, and consists of a fragmented uterus (124 g, aggregating to 11.6 x 11.2 x 3.7 cm) detached intact fallopian tube (4.6 x 0.7 cm), detached fragmented fallopian tube (reapproximated to 4.2 x 0.8 cm), with no cervix or additional adnexa identified. The uterine serosa is thompson and smooth with no adhesions or hemorrhage identified. The presumed endometrium is thompson and velvety and averaged 0.1 cm thick. The myometrium is thompson and trabecular, and maximum thickness cannot be determined. Multiple intramural, white, well-circumscribed, whorled nodules are identified ranging from 0.4 cm to 1.4 cm in greatest dimension. No hemorrhage or necrosis is identified. An additional ill-defined pale thompson area is identified measuring up to 2.1 cm in greatest dimension. No additional lesions are identified. The intact fallopian tube has congested smooth serosa with no cystic structures identified. Sectioning reveals an unremarkable stellate lumen. The disrupted fallopian tube has congested smooth serosa with no cystic structures identified. Sectioning reveals one fragment to have an unremarkable stellate lumen and the other fragment to have a dilated lumen (0.4 cm) filled with brown fluid. A portion of tubular structure is identified attached to the disrupted uterus and measures 0.5 x 0.3 cm and has a patent pinpoint lumen. Shuttle Van Driver sections are submitted as follows: A1: Shuttle Van Driver endometrium. A2: Shuttle Van Driver ill-defined area. A3: Section to include well-defined nodule, ill-defined area, serosa, and presumed endometrium. A4: Ill-defined area, well-defined nodule, presumed endometrium, and serosa. A5: Shuttle Van Driver well-defined nodules. A6: Shuttle Van Driver serosa. A7: Shuttle Van Driver intact fallopian tube to include entire fimbriae and cross-sections. A8: Shuttle Van Driver disrupted fallopian tube to include entire fimbriae and cross-sections. A9: Shuttle Van Driver additional tubular structure (presumed fallopian tube). ([id number]) /FRR 08/20/2022 1203 Local . 01 Pathologist provided ICD-10: D25.0, N39.3 . 01 CPT . 058414 Specimen Comment: A courtesy copy of this report has been sent to [phone] Performed at: 01 [facility] [address] [place] [address] [address] [facility] [place], [place], [place] [id number] MD Gavin Craig MD Phone: [phone]
[2022-08-18] MEDS: LACTATED RINGERS 1,000 ML 42 ML IV ×2 (11:24→14:40)
[2022-08-18] MEDS: SCOPOLAMINE 1 PATCH TOP (11:28)
--- NOTE | 2022-08-18 12:56 | PM.PREOP ---
Pre-operative Note COVID-19 COVID-19 status: Negative Result date/Date tested (Pos, Neg/Pending): 08/17/22 Criteria for continued procedure: Non-surgical alternatives not available or appropriate per current SOC Interval Note History & Physical reviewed/Exam performed by Physician: Yes Changes to H&P: No
[2022-08-18] MEDS: CEFAZOLIN 2 GM/100 ML PREMIX 100 ML IV (13:00)
[2022-08-18] MEDS: ACETAMINOPHEN IV 1,000 MG/100 ML VIAL 400 MG IV (13:15)
--- NOTE | 2022-08-18 13:40 | SUR.OPER ---
Lithotomy on padded OR bed, head on pillow, arms secured on padded arm boards at <90 degrees abduction. Legs secured in padded yellow fins stirrups.
[2022-08-18] MEDS: BUPIVACAINE 0.5% W/ EPI (PF) 30 ML VIAL INJ (14:15)
--- NOTE | 2022-08-18 15:01 | SUR.OPER ---
Lithotomy on padded OR bed. Hosmer Pad Positioner under torso. Head on pillow, arms padded and tucked at sides. Legs secured in padded yellow fins stirrups.
--- NOTE | 2022-08-18 15:24 | SUR.OPER ---
2 units of Regular insulin given at 1451 for a blood glucose of 192 at 1442. Verification of Insulin dose done by Dr. Leona Avina and Kalli Gracia RN.
[2022-08-18] MEDS: INSULIN REGULAR 100 UNIT/ML 3 ML VIAL SUBCUT (16:26)
--- NOTE | 2022-08-18 16:43 | PM.GYNOP.1 ---
Operative Date/Time/Diagnoses Date of procedure: 08/18/22 Time of procedure: 13:30 Pre-op diagnosis: Menometrorrhagia Dysmenorrhea Stress urinary incontinence Post-op diagnosis: same Procedure & Clinicians Procedure: Procedures Operation Date: 08/18/22 12:15 Actual Procedure Side Surgeon p Laparoscopic supracervical hysterectomy with bilateral salpingectomy Not Applicable Darin Peng MD s Mid urethral sling, cystoscopy Not Applicable Darin Peng MD Indications: Danielle is a 51-year-old A3, LMP who presented originally for evaluation of intractable menometrorrhagia status post endometrial ablation performed in May 2021.? Patient experienced menarche at age 10 and has had heavy and painful periods throughout her adult life.? Periods have been regular however and she had no issue with conception with 3 vaginal births and her youngest child delivered by section.? Her largest infant was 9 lb 11 oz..? Patient's menses are 30-35 days apart and last 7-10 days each.? The couple of days are so severe insofar as pain and bleeding that she is incapacitated and often at bedrest but never leaves the house due to fear of overflows and accidents despite use of pads and tampons.? Patient underwent an endometrial biopsy showing proliferative endometrium in February of 2021 with an ultrasound at that time at [facility] showing an anteverted uterus measuring 13 x 5.5 x 5.5 cm and an anterior submucous myoma measuring 2.0 x 2.2 cm.? In addition there was a posterior 1.4 x 1.3 cm myoma.? Endometrial stripe measured 9 mm and there is an ovoid nabothian cysts measuring 2.5 x 2.8 cm..? Following her endometrial ablation she had no significant change in her bleeding pattern and was scheduled for vaginal hysterectomy in March 2022 but she canceled it because her menometrorrhagia subsided in December and February of 2022 but in April her heavy periods returned.? According to the patient she had blood work which confirmed that she is not yet gone through menopause and she denies any vasomotor symptoms, night sweats, or vaginal dryness.? She does however have a long history of insomnia.? In addition to her menometrorrhagia the patient also states that she has leakage of urine when she coughs, sneezes, or strains and this has been ongoing for several years but she denies any urge symptoms, urge incontinence, or UTI's.? She is sexually active and does experience significant deep dyspareunia. After consideration of all options, the patient has opted proceed with total laparoscopic hysterectomy with salpingectomy, and placement of a mid urethral sling with cystoscopy.? She presents today for her scheduled surgery. Surgeon: Darin Peng Customer Resolution Specialist: Dipika Jarquin Anesthesia Type: General Operative Notes Findings: There is extensive intra-abdominal scarring involving the anterior abdominal wall to the omentum on the right side beginning at about the level of the umbilicus. The uterus is enlarged, boggy, and hyperemic. There was extensive scarring involving the bladder particularly on the left side and due to the extensive nature of the scarring, the decision was made to perform a supracervical hysterectomy rather than a total hysterectomy at the time of the procedure. Fallopian tubes demonstrate change consistent with prior tubal ligation but both ovaries are normal. There is a small superficial implant of endometriosis immediately lateral to the uterosacral ligament on the right-hand side near its insertion into posterior aspect of the cervix. There were no other abnormalities in the posterior cul-de-sac. Both ovaries appeared to be normal. Cystoscopy reveals a normal bladder with vigorous jets of clear urine from each ureteral meatus. Closure Type: primary Specimen(s): left tube, right tube and uterus Applied: catheter Estimated blood loss (mL): 175 Blood products transfused: none Procedure in detail: With the patient under satisfactory general anesthesia in the modified dorsal lithotomy position, the perineum, vagina, and abdomen were prepped and draped in the usual fashion for total laparoscopic hysterectomy. A pre-surgical safety time-out was then taken in accordance with [facility] Main OR protocols. A Mendoza catheter was inserted in the bladder. A bivalve speculum was then inserted in the vagina and the cervix visualized. The cervix was dilated with Hegar dilators so as to be able to introduce a VCare uterine manipulator with a large cup. The tenaculum and the speculum were removed and the VCare manipulator brought into correct position. The umbilicus was then infiltrated with 0.5% Marcaine with epinephrine and a 1 cm vertical umbilical incision was then made. A Veress needle was then used to insufflate the abdomen with carbon dioxide and a 5 mm bladeless trocar and sleeve were then placed through the umbilical incision. Correct placement of the trocar and sleeve into the abdominal cavity was confirmed with the laparoscope and a 2nd and 3rd 5 mm port were inserted in the left and right mid quadrant using a similar technique. Using a 3 puncture technique, pelvis and abdomen were visualized with the findings as noted above. The patient was placed in steep Trendelenburg and the distal left tube was elevated with a grasping forcep. A PowerSeal device was then used to coagulate and divide the fimbria ovarica with the dissection carried across the mesosalpinx where the tube was amputated and brought out through 1 of the 5 mm ports. Careful dissection was then carried downward on the left side with coagulation and division of the utero-ovarian ligament followed by coagulation and division the round ligament on left. Sharp and blunt dissection were used to secure the parametria on the left using the PowerSeal device. The bladder flap was initiated on the left side and carried across the midline. The vessels were skeletonized at the level of the upper endocervical canal, coagulated with the PowerSeal device, and divided. Attention was then turned to the right side where the distal tube was grasped and the fimbria ovarica was coagulated and divided with the PowerSeal device. The dissection was then carried across the mesosalpinx and the right fallopian tube amputated. It too was removed through a 5 mm port. The dissection was then carried downward on the right-hand side using the PowerSeal device to the level of the upper aspect of the endocervical canal and the uterine vessels were coagulated and divided at that level before completion of the bladder flap. The bladder was advanced and using a Chayo loop, the corpus was amputated. Monopolar current was used to render the cervical stump completely hemostatic and monopolar current was used in the endocervical canal to fulgurate any residual endocervical glandular mucosa. A 4 cm transverse incision was made in the line of the patient's old Pfannenstiel scars and a 12 mm trocar and sleeve was introduced into the abdominal cavity. An Endo-Catch bag was then to reviews to retrieve the uterus and with the assistance of an Chris retractor, the specimen was morcellated within the Endo-Catch bag and submitted as an aggregate specimen with the fallopian tubes. The fascial incision was then closed with 0 Vicryl in a running stitch and the subcutaneous tissues were approximated with 2-0 Vicryl in a running stitch. The abdomen was then re-insufflated and the pelvis fully inspected for any areas of bleeding or other abnormalities. There was no bleeding detected and the ureters were seen to be peristalsing actively on both sides. The pneumoperitoneum was then vented and 4-0 Monocryl using inverted interrupted stitches was used to close all the incisions. Appropriate dressings were applied preparations were made for the TVT portion of the case. The urethrovesical junction was identified by palpation of the Mendoza balloon and a 2 cm longitudinal incision of the anterior vaginal mucosa was then made at mid urethra. The dissection was then carried out laterally on both sides with Metzenbaum scissors and the Ethicon TVT was placed on the left and right side of the urethra in the usual manner and brought up through the suprapubic skin. Cystoscopy revealed a normal urethra and no evidence of any ureteral or bladder injury. The DVT was brought into proper position before removal of the sleeve and once the sleeve was removed, the mesh was trimmed on both sides. Once proper positioning was assured, the mucosal incision was closed with 3-0 chromic in a running interlocking stitch and pressure was held both vaginally and suprapubically for approximately 5 minutes to minimize risk of retropubic oozing. Skin glue was then applied to the suprapubic incisions and appropriate dressing was applied. Mendoza catheter was reinserted after cystoscopy and the patient was awakened from anesthesia. She was then transferred to the PACU for a period of observation and recovery having tolerated procedure well. Complications: none Post-operative Condition: stable Disposition: PACU Plan for aftercare: Routine postoperative care with discharge anticipated 08/19/2022.
[2022-08-18] MEDS: LACTATED RINGERS 1,000 ML 100 ML IV (17:50)
[2022-08-18] MEDS: OXYCODONE IR 5 MG TABLET 10 MG PO ×2 (19:24→23:50)
[2022-08-18] MEDS: DOCUSATE 100 MG CAPSULE 200 MG PO (21:21)
[2022-08-18] MEDS: ATORVASTATIN 20 MG TABLET PO (21:21)
[2022-08-18] MEDS: hydrOXYzine pamoate 25 MG CAPSULE PO (21:21)
[2022-08-18] MEDS: IBUPROFEN 600 MG TABLET PO (23:50)
[2022-08-19] VITALS: BP 107/54; PULSE 71; RESP 17; TEMP 36; O2SAT 98
[2022-08-19] MEDS: LACTATED RINGERS 1,000 ML 100 ML IV (03:29)
[2022-08-19 04:06] VITALS: BP 97/50; PULSE 70; RESP 16; TEMP 36; O2SAT 96
[2022-08-19 04:56] LABS: Add Manual Diff / Slide Review NO; Basophils Absolute Auto 0 /uL (0-100); Basophils Percent Auto 0.4 % (0-2); Eosinophils Absolute Auto 0 /uL (0-450); Hematocrit 34.8 % (36-46); Hemoglobin 11.7 g/dL (12.0-16.0); Lymphocytes Absolute Auto 2500 /uL (1100-4500); Lymphocytes Percent Auto 20.9 % (25-40); Mean Corpuscular HGB Conc 33.7 % (30-36); Mean Corpuscular Hemoglobin 30.8 PG (26-34); Mean Corpuscular Volume 91.5 fL (80-100); Monocytes Absolute Auto 500 /uL (0-900); Neutrophils Absolute Auto 9000 /uL (1500-7000); Neutrophils Percent Auto 74.7 % (50-75); Platelet Count 247 X10^3/uL (150-400); Red Cell Distribution Width 13.6 % (11.6-14.8)
--- NOTE | 2022-08-19 06:40 | PC.NURSE ---
Senior Reactor Operator Note-Patient is A/Ox4. Abdominal dressings CDI, oxycodone and ibuprofen effective for pain. Has not ambulated, moves independently in bed, SCDs on. 1450ml UOP in Mendoza, scant drainage on peripad.
[2022-08-19 08:00] VITALS: BP 148/82; PULSE 68; RESP 16; TEMP 36.7; O2SAT 98
[2022-08-19] MEDS: DOCUSATE 100 MG CAPSULE 200 MG PO (08:07)
[2022-08-19] MEDS: METFORMIN HCL 500 MG TABLET 2000 MG PO (08:07)
[2022-08-19] MEDS: OXYCODONE IR 5 MG TABLET 10 MG PO (08:07)
[2022-08-19] MEDS: CITALOPRAM 10 MG TABLET 40 MG PO (08:08)
[2022-08-19] MEDS: INSULIN GLARGINE 100 UNIT/ML 3ML PEN 10 UNIT SUBCUT (08:09)
--- NOTE | 2022-08-19 08:32 | P.DS_ITS ---
History of Present Illness History of Present Illness Date Patient Seen: 08/19/22 Time Patient Seen: 08:32 Chief complaint: OPB Discharge Providers Provider Date of admission: 08/18/2022 Discharge Date: 08/19/22 Primary care physician: Angie Colmenares PA-C Discharge provider: Darin Peng MD Summary Hospital Course Discharge Diagnosis: Status post laparoscopic supracervical hysterectomy with bilateral salpingectomy and placement of mid urethral sling. Hospital Course: Danielle was admitted on the morning of 08/18/2022 and underwent an uneventful laparoscopic supracervical hysterectomy with bilateral salpingectomy and placement of mid urethral sling. Details of those procedures are well summarized on my operative note of that date. Following surgery the patient has done extremely well with prompt return of bowel and bladder function, she is voiding without difficulty following catheter removal, ambulating independently, tolerating regular diet, and her pain is well relieved with oral pain medications. She will be discharged at this time in an afebrile normotensive condition home after counseling regarding precautionary symptoms, limitations of activity, medications, and plans for follow-up which will be in 2 weeks. Nate herrera will resume all preadmission medications and her discharge medications will include oxycodone 5 mg 1 p.o. q.6 hours as needed pain 20, and Colace 200 mg p.o. b.i.d. as needed constipation. Status at Discharge Cognitive/behavioral status at discharge: oriented Functional status at discharge: independent ambulation Overall status at discharge: patient is progressing back to baseline Time Spent with Patient Time spent: Less than 30 minutes Exam Vital Signs (past 8 hours): - 08/19/22 04:06 08/19/22 08:00 Temperature 96.8 F L 98.1 F Pulse Rate 70 68 Respiratory Rate 16 16 Blood Pressure 97/50 L 148/82 H Pulse Oximetry 96 98 Oxygen Flow Rate 0 Oxygen Delivery Method Room Air Oxygen Flow Rate 0 Const General: cooperative and comfortable Nutritional Appearance: average body habitus Orientation: alert and oriented x3 HENMT Head: normal to inspection, atraumatic and abrasion Ears: hearing grossly normal bilaterally Face and sinus: face symmetric Eyes General: appearance normal, both eyes and all related structures Conjunctivae: conjunctivae normal Sclera: sclerae normal EOM: EOM intact bilaterally Neck Neck: normal visual inspection Resp Effort & Inspection: normal respiratory effort and able to speak in complete sentences Auscultation: clear to auscultation bilaterally Cardio Rate: regular rate Rhythm: regular rhythm Heart Sounds: S1 normal, S2 normal and no murmurs GI Inspection: normal to inspection and incision (Surgical dressings clean and dry) Palpation: soft, no hepatosplenomegaly and tender (Mild, diffuse postsurgical tenderness) External Female Exam: other (No significant bleeding noted) Extrem General: no calf tenderness Psych Appearance: grossly normal Mental Status: mental status grossly normal Speech and Movement: speech and movement normal Mood: congruent mood Affect: normal affect Attitude: cooperative Thought Process: normal Thought Content: normal Judgment: judgment good Objective Labs Result Diagrams: 08/19/22 04:10 Labs: Laboratory Results - last 24 hr 08/19/22 04:10 WBC 12.0 H RBC 3.80 L Hgb 11.7 L Hct 34.8 L MCV 91.5 MCH 30.8 MCHC 33.7 RDW 13.6 Plt Count 247 Neut % (Auto) 74.7 Lymph % (Auto) 20.9 L Hodgeman % (Auto) 4.0 Eos % (Auto) 0.0 L Baso % (Auto) 0.4 Neut # (Auto) 9000 H Lymph # (Auto) 2500 Hodgeman # (Auto) 500 Eos # (Auto) 0 Baso # (Auto) 0 PFSH Medical History Anesthesia complication Depression Diabetes Surgical History H/O tubal ligation History of section History of hysteroscopy (05/14/21) Hx of cholecystectomy Hx of hernia repair Social History household members: spouse Smoking Status: Never smoker alcohol intake: never Discharge Plan Discharge Plan Patient Disposition: Home Provider Discharge Comment: Please review the written instructions you received when you were released from the hospital. Your follow-up appointment will need to be scheduled for 2 weeks following your surgery and I look forward to seeing you then. If however in the meanwhile, you have any issues, concerns, or questions, please contact me either through the office phone at [phone] or via the patient portal. Discharge orders & Medications Discharge Orders: Discharge (Order); Ordered 08/19/22 Ordered By: Darin Peng Prescriptions: New docusate sodium 100 mg Capsule 200 mg PO BID 15 Days Qty: 30 0RF oxycodone 5 mg Tablet 10 mg PO Q6H PRN (Reason: Pain, Severe (7-10)) Qty: 20 0RF Continued metformin 500 mg tablet 2,000 mg PO DAILY Victoza 2-Javed 0.6 mg/0.1 mL (18 mg/3 mL) pen injector 0.6 mg SUBCUT DAILY citalopram 40 mg tablet 40 mg PO DAILY hydrocodone-acetaminophen 5-325 mg tablet 1 tab PO BID PRN (Reason: pain) Qty: 10 0RF atorvastatin 20 mg tablet 20 mg PO BEDTIME insulin glargine [Lantus Solostar U-100 Insulin] 100 unit/mL (3 mL) insulin pen 10 unit SUBCUT QAM hydroxyzine HCl 25 mg tablet 25 mg PO 3XD Follow up/Referrals: Angie Colmenares PA-C [Primary Care Provider] - Darin Peng MD [Physician] - Diet/Activity/Treatments Diet: Diet as Tolerated Activity: As tolerated Other treatments: Gzql-ewc-[id number] Tylenol and/or ibuprofen may also be used for additional pain relief Skin/Wound/Dressing Care Report to your healthcare provider any signs of infection, such as:: chills, fever, increased pain, unusual drainage and unusual redness Dressing: Dressings may be removed on the morning of 08/20/2022 Visit Report/Discharge Packet Instructions: DI for Hysterectomy, DI for Laparoscopy, Oxycodone Stand Alone Forms: Patient Portal/API, Surgery Discharge Print Language: Bengali Discharge Data Primary Care Provider: Angie Colmenares Attending Provider: Darin Peng Quality VTE Deep Vein Thrombosis/Pulmonary Embolism Present on Admission: No
--- NOTE | 2022-08-19 09:05 | CM.DANOTE ---
DCP: Case received, EMR reviewed and met with patient. Introduced self and role. Was able to obtain some information from patient to complete DCP assessment. Assessment was completed with information currently available. Patient is a 51 year old female who admitted yesterday morning to the care of the COSMETOLOGY EDUCATOR provider. PCP: Dr. Colmenares Payer: confirmed: Diana Marie. Patient came to the hospital for a surgical procedure. She had a laparoscopic supracervical hysterectomy with bilateral salpingectomy. Patient has history of menometrorrhagia. Met with patient in her room. She is pleasant, alert and oriented. She was sitting up in bed, had been speaking to her mother. She is independent, and resides in [place] with her spouse, Calvin. She stated her is retired, and will be around if I need anything. Confirmed with patient that her primary care provider is Dr. Colmenares. P: DCP to continue to follow. Patient should be able to go home when deemed medically stable, possibly today. Maricel Brambila RN/Order Fulfillment Specialist Discharge Planning/Care Management CM Discharge Assessment Start: 08/19/22 09:04 Freq: Status: Active Protocol: Document 08/19/22 09:04 (Rec: 08/19/22 09:05 [id number]) Discharge Planning Assessment Assigned Information Management Specialist Maricel Brambila RN/Order Fulfillment Specialist Advance Directives? No History Provided By Patient,Medical Record Prior Living Arrangements House Household Members spouse Type of transporation used prior to Drives own vehicle admit Independent with ADL's Yes Is patient alert and oriented? Yes Caregiver for Another No Barriers to Discharge No Discharge Plan Home Transportation Arrangement Spouse Referrals Initiated None needed Whiteboard Updated in Patient Room with Yes name and ext. # of Information Management Specialist Review Status In Process Next Review Type Continued Stay Review Pre-Anesthesia Assessment Start: 08/15/22 08:42 Freq: Status: Complete Protocol: Document 08/15/22 08:42 CAB (Rec: 08/15/22 08:49 CAB [id number]) Pre-Anesthesia Assessment Patient Information Reviewed Via Chart Review Comment COVID screen 08/17/22 Seen Specialist in Last 12 Months Yes Specialist Seen Director Web Primary Language Portuguese Fence Manufacture Supervisor Required No Height 5 ft 3 in Weight 172 lb Body Mass Index (BMI) 30.4 Barriers to Learning None Hx Anesthesia Reactions Yes: PONV Hx Family Anesthesia Reaction No Hx Malignant Hyperthermia No Hx Blood Transfusion Reaction No Anesthesia Review Requested No Statistician Mathematical No alcohol intake current alcohol intake frequency a few times a month Smoking Status Never smoker Substance Use Type does not use History of Falling (Recent or History of No ) Patient is completely paralyzed or No completely immobile Mental Status Oriented to own ability Is patient on oxygen? No Hx Sleep Apnea No CPAP/BIPAP use not prescribed Currently Taking a Beta Riley No Hx Chest Pain Yes: Atypical Anti-Coagulant Therapy No Cardiac Testing No Hx Pacemaker/ICD No Pacemaker Rep Required? No Urinary Catheter Present No Hx Urinary Self Catheterization No Diabetes Yes Patient No Presence of External or Internal Medical No: abdominal mesh from prior Devices large hernia surgery Received a COVID vaccine? Yes: boosted Marital Status Lives With spouse,children Patient Discharge Plan Description Return Home Advance Directives? No Power of Agricultural Equipment Mechanic No
[2022-08-19 12:00] VITALS: BP 98/50; PULSE 70; RESP 20; TEMP 36.7; O2SAT 97
--- NOTE | 2022-08-19 12:26 | PC.NURSE ---
Pt dressed and ready for d/c home. Pt to be transported via POV with . IV removed and no tele. Pt denies having medications held at the hospital pharmacy and denies any personal items being held in the safe. Discussed d/c instructions with pt and answered questions. Provided education about oxycodone, laproscopy,hysterectomy, stroke s/s. Pt taken out via wheel chair with all belongings by COPY LATHE OPERATOR.
== END 2022-08-19 12:25 | disposition home or self-care (01) ==
LOC: OR 10:33 → AC 10:33
PROVIDERS: PCP Physician Assistant; Referring Provider Obstetrics & Gynecology; Visit Provider Obstetrics & Gynecology
PROC: 0UT94ZZ Resection of Uterus, Percutaneous Endoscopic Approach (ICD-10-PCS; CPT 58542; principal; 2022-08-18 12:15)
PROC: 0TSD0ZZ Reposition Urethra, Open Approach (ICD-10-PCS; CPT 58542; 2022-08-18 12:15)
DX: N92.1 Excessive and frequent menstruation with irregular cycle (principal); N94.6 Dysmenorrhea, unspecified; N39.3 Stress incontinence (female) (male); N80.3C1 Endometriosis of the right uterosacral ligament, unspecified depth; N99.85 Post endometrial ablation syndrome; Z79.4 Long term (current) use of insulin; E11.9 Type 2 diabetes mellitus without complications; D25.9 Leiomyoma of uterus, unspecified; N80.03 Adenomyosis of the uterus
CPT/HCPCS: 58542; 57288; 82962; 85025; C1771; J0131; J0690; J1100; J1170; J1885; J2250; J2405; J2704; J3010

== ENCOUNTER 2022-11-17 14:11 | Emergency (ER) | payer OTHER, SELFPAY ==
[2022-08-18 17:02] VITALS: BMI 31.1
[2022-11-17 14:50] VITALS: BP 136/71; PULSE 88; RESP 12; TEMP 36.5; O2SAT 98
--- NOTE | 2022-11-17 14:53 | DI.RAD.S_ITS ---
PROCEDURE: XR ANKLE RT MIN 3V INDICATIONS: inversion injury TECHNIQUE: 3 views of the ankle were acquired. COMPARISON: None. FINDINGS: Bones: No fractures or dislocations. Ankle mortise is normally aligned. No suspicious bony lesions. Soft tissues: No tibiotalar joint effusion. Achilles tendon appears normal. IMPRESSION: No visualized acute fracture or dislocation. However, if clinical concern and/or pain persist, short interval imaging followup in 7-10 days is recommended, as occult injury cannot be definitively excluded. Dictated by: Cori Moore M.D. on 11/17/2022 at 16:10 Approved by: Cori Moore M.D. on 11/17/2022 at 16:10
--- NOTE | 2022-11-17 14:53 | DI.RAD.S_ITS ---
PROCEDURE: XR KNEE RT 3V INDICATIONS: ankle injury TECHNIQUE: 3 views of the knee were acquired. COMPARISON: [facility], CR, XR ANKLE RT MIN 3V, 11/17/2022, 15:04. FINDINGS: Bones: No fractures or dislocations. No suspicious bony lesions. Soft tissues: No joint effusion. No suspicious soft tissue calcifications. IMPRESSION: No visualized acute fracture or dislocation. However, if clinical concern and/or pain persist, short interval imaging followup in 7-10 days is recommended, as occult injury cannot be definitively excluded. Dictated by: Cori Moore M.D. on 11/17/2022 at 16:10 Approved by: Cori Moore M.D. on 11/17/2022 at 16:10
--- NOTE | 2022-11-17 17:03 | ED_ITS ---
HPI - Extremity Injury (Lower) General Chief Complaint: Extremity Injury, Lower Stated Complaint: sprained Dannae @1030am, stiff,discolored Time Seen by Provider: 11/17/22 14:53 Source: patient Mode of arrival: Ambulatory History of Present Illness HPI Narrative: 51-year-old female nonsmoker with noncontributory medical history presents with the chief complaint of an inversion injury of her right ankle when stepping awkwardly this morning. She has significant swelling and pain with ambulation. The pain extends up to her lateral knee. She denies any numbness, tingling or weakness. She denies other injury or history of the same. She denies any chest pain or shortness of breath and is not dizzy nor weak or lightheaded. Related Data Home Medications Medication Instructions Recorded Confirmed citalopram 40 mg tablet 40 mg PO DAILY 05/04/21 10/05/22 liraglutide 0.6 mg/0.1 mL (18 mg/3 0.6 mg SUBCUT DAILY 05/04/21 10/05/22 mL) subcutaneous pen injector (Victoza 2-Javed) metformin 500 mg tablet 2,000 mg PO DAILY 05/04/21 10/05/22 atorvastatin 20 mg tablet 20 mg PO BEDTIME 08/18/22 10/05/22 hydroxyzine HCl 25 mg tablet 25 mg PO 3XD 08/18/22 10/05/22 insulin glargine 100 unit/mL (3 10 unit SUBCUT QAM 08/18/22 10/05/22 mL) subcutaneous pen (Lantus Solostar U-100 Insulin) Previous Rx's Medication Instructions Recorded hydrocodone 5 mg-acetaminophen 325 1 tab PO BID PRN pain #10 tabs 04/27/22 mg tablet oxycodone 5 mg tablet 10 mg PO Q6H PRN Pain, Severe 08/19/22 (7-10) #20 tabs Allergies Allergy/AdvReac Type Severity Reaction Status Date / Time codeine Allergy Intermediate Rash Verified 11/17/22 14:55 dulaglutide [From Trulicity] Allergy Intermediate Rash Verified 11/17/22 14:55 exenatide [From Bydureon] Allergy Intermediate Rash Verified 10/05/22 08:19 Review of Systems Review of Systems Narrative: GENERAL: Denies chills, fatigue, malaise, fever, sweats. HEENT: Denies sinus pain, ear pain, sore throat, difficulty swallowing, dizziness. RESPIRATORY: Denies dyspnea, cough, wheezing, hemoptysis, sputum. CARDIOVASCULAR: Denies chest pain, palpitations, orthopnea, edema, GASTROINTESTINAL: Denies nausea, vomiting, abdominal pain, diarrhea, const ipation, melena. : Denies dysuria, frequency, incontinence, hematuria, urinary retention. MUSCULOSKELETAL: See HPI SKIN: Denies rash, skin lesions, or other NEUROLOGIC: Denies weakness, headache, numbness, change in speech, confusion, seizures, incoordination. PSYCHIATRIC: No concerning psychosocial issues. 12 point review of systems is negative except for those stated above Patient History Medical History Anesthesia complication Depression Diabetes Surgical History H/O tubal ligation History of section History of hysterectomy for benign disease History of hysteroscopy (05/14/21) Hx of cholecystectomy Hx of hernia repair Social History household members: spouse Smoking Status: Never smoker alcohol intake: never Smoking Status: Never smoker alcohol intake frequency: holidays/special occasions only Substance Use Type: does not use Exam Narrative Exam Narrative: GENERAL: [51] year old patient appears stated age. Well-developed patient, in mild distress. HEAD: Atraumatic. Normocephalic. EYES: Pupils equal round and reactive. Extraocular motions intact. No scleral icterus. No injection or drainage. ENT: Nose without bleeding, purulent drainage. Throat without erythema, tonsillar hypertrophy or exudate. Airway patent. NECK: Trachea midline. Non tender CARDIOVASCULAR: Regular rate and rhythm without murmurs, gallops, or rubs. RESPIRATORY: Clear to auscultation. Breath sounds equal bilaterally. No wheezes, rales, or rhonchi. GASTROINTESTINAL: Abdomen soft, non-tender, nondistended. EXTREMITIES: Tenderness to medial and lateral malleoli of right ankle, no obvious swelling, no ligamentous instability, no tenderness over talus or 5th metatarsal. There is some pain with squeeze test raising suspicion of possible syndesmotic injury. Minimal pain at proximal fibula BACK: Nontender without deformity or crepitance. No flank tenderness. NEURO: AOx3. SKIN: No rash or erythema of visible areas Initial Vital Signs Initial Vital Signs: Vital Signs Temperature 97.7 F 11/17/22 14:50 Pulse Rate 88 11/17/22 14:50 Respiratory Rate 12 11/17/22 14:50 Blood Pressure 136/71 11/17/22 14:50 Pulse Oximetry 98 11/17/22 14:50 Oxygen Delivery Method 11/17/22 14:50 Procedures Orthopedic Splinting/Casting Injury #1: Side: right Lower Extremity Injury Location: ankle Lower Extremity Immobilizer: boot orthosis Other Orthopedic Equipment: crutches Post splinting neuro exam: intact Post splinting vascular exam: intact Placed by: Nursing Course Orders Ordered: ED Orders 11/17/22 14:53 XR ankle RT min 3V Stat XR knee RT 3V Stat Consultations Consultation #1: Discussed with on-call orthopedist and after discussion of history, physical exam and imaging, recommends boot orthosis with crutches and follow-up Vital Signs Vital signs: Vital Signs - 8 hr 11/17/22 14:50 11/17/22 18:11 Temperature 97.7 F Pulse Rate 88 80 Respiratory Rate 12 Blood Pressure 136/71 126/70 Pulse Oximetry 98 97 Oxygen Delivery Method Room Air Room Air MDM - Extremity Injury (Lower) MDM Narrative Medical decision making narrative: [51-year-old female with noncontributory medical history presents with inversion injury of right ankle] Multiple etiologies for patient's symptoms considered including, but not limited to: [Fracture, sprain, syndesmotic injury, versus other] Imaging reviewed: No fracture or dislocation Consultations: Discussed with on-call orthopedist, see details above Patient splinted, given crutches Findings and discharge diagnosis discussed with patient/family followed by verbalization of understanding Return precautions discussed with patient/family whom verbalize understanding of diagnosis and plan Discharge Plan Departure Patient Disposition: Home Clinical Impression: High ankle sprain Instructions: DI for Ankle Sprain Activity Restrictions/Additional Instructions: *You have been diagnosed with [right ankle sprain without radiographic evidence of fracture or dislocation though as we discussed high ankle sprain is considered in the differential] *What to do: *Please continue to take your regular medications as directed. [ ] New medication prescriptions sent to your pharmacy: [ ] [ ] New medication written as a paper prescription [x] Tylenol and occasional Motrin for pain *Please follow up with [facility] in 2-3 days, call for an appointment. Let them know you were seen in the Emergency Department and that we ask that you be seen in follow up. We will electronically transmit a record of today's note if your PCP is in our system *Return to Emergency Department if you should have any new, worsening or concerning symptoms, such as [worsening pain, significant swelling, cold extremities, numbness, tingling, weakness or other bothersome symptoms Prescriptions: No Action metformin 500 mg tablet 2,000 mg PO DAILY Victoza 2-Javed 0.6 mg/0.1 mL (18 mg/3 mL) pen injector 0.6 mg SUBCUT DAILY citalopram 40 mg tablet 40 mg PO DAILY hydrocodone-acetaminophen 5-325 mg tablet 1 tab PO BID PRN (Reason: pain) Qty: 10 0RF atorvastatin 20 mg tablet 20 mg PO BEDTIME insulin glargine [Lantus Solostar U-100 Insulin] 100 unit/mL (3 mL) insulin pen 10 unit SUBCUT QAM hydroxyzine HCl 25 mg tablet 25 mg PO 3XD oxycodone 5 mg Tablet 10 mg PO Q6H PRN (Reason: Pain, Severe (7-10)) Qty: 20 0RF Referrals: Greg James MD [Physician] - Angie Colmenares PA-C [Primary Care Provider] - Stand Alone Forms: Patient Portal/API
[2022-11-17 18:11] VITALS: BP 126/70; PULSE 80; O2SAT 97
== END 2022-11-17 18:10 | disposition home or self-care (01) ==
PROVIDERS: Emergency Provider Emergency Medicine; PCP Physician Assistant
DX: S93.401A Sprain of unspecified ligament of right ankle, initial encounter (principal); X50.1XXA Overexertion from prolonged static or awkward postures, initial encounter; Z79.899 Other long term (current) drug therapy
CPT/HCPCS: 73562; 73610; 99281; 99283

== ENCOUNTER 2023-08-28 08:05 | Observation (INO) | payer OTHER, SELFPAY ==
[2022-08-18 17:02] VITALS: BMI 31.1
[2023-08-28] VITALS (23 sets, daily range): BP systolic 107–134; BP diastolic 51–79; PULSE 62–79; RESP 9–23; TEMP 35.8–36.5; O2SAT 95–99; BMI 31.6
--- NOTE | 2023-08-28 08:30 | DI.CT.S_ITS ---
PROCEDURE: CT STROKE INDICATIONS: vertigo, RUE weakness, right numbness, onset Monday TECHNIQUE: Noncontrast 4.5 mm thick angled axial sections acquired from the foramen magnum to the vertex, with coronal reformats. For radiation dose reduction, the following was used: automated exposure control, adjustment of mA and/or kV according to patient size. COMPARISON: None. FINDINGS: Image quality: Excellent. CSF spaces: Basal cisterns are patent. No extra-axial fluid collections. Ventricles are normal in size and shape. Brain: No midline shift. No intracranial masses or hemorrhage. [place]-white matter interface is normal. Skull and face: Calvarium and visualized facial bones are intact, without suspicious lesions. Sinuses: Visualized sinuses and mastoids are clear. IMPRESSION: No acute intracranial process. Comment: Findings were discussed with Dr. Em on 08/28/2023 at 0853 hours This study fulfills neurological imaging criteria for inclusion or exclusion of acute stroke therapies based on available published neurological imaging guidelines. Dictated by: Douglas Webster M.D. on 08/28/2023 at 8:53 Approved by: Douglas Webster M.D. on 08/28/2023 at 8:55
--- NOTE | 2023-08-28 08:31 | DI.CT.S_ITS ---
PROCEDURE: CT ANGIO HEAD AND NECK INDICATIONS: vertigo, RUE weakness, numbness right started Monday TECHNIQUE: After the administration of intravenous contrast, 1 mm thick sections acquired from the aortic arch through the [place]. 3-dimensional wglxlah-pocmtnebj-iqqqwdyzyv (MIP) and/or volume rendering reformats were acquired of the central intracranial vasculature and neck separately. For radiation dose reduction, the following was used: automated exposure control, adjustment of mA and/or kV according to patient size. COMPARISON: [facility], CT, CT STROKE, 08/28/2023, 8:37. FINDINGS: Image quality: Diagnostic. BRAIN: CSF spaces: Ventricles are normal in size and shape. Basal cisterns are patent. No extra-axial fluid collections. Brain: No significant abnormality of the brain can be seen. Skull and face: Calvarium and facial bones appear intact, without suspicious lesions. Orbits appear normal. Sinuses: Sinuses and mastoids are clear. HEAD CT ANGIOGRAPHY: Anterior circulation: Intracranial internal carotid arteries are normal in size and flow. The flow within the paired anterior cerebral arteries is normal and symmetric. The flow within the middle cerebral arteries is normal and symmetric. There is normal variant atresia of the A1 segment of the right anterior cerebral artery. Anterior cerebral arteries are otherwise widely patent. No aneurysms are seen. Posterior circulation: Visualized portions of the vertebral arteries demonstrate normal caliber, and join to form a normal appearing basilar artery. Flow within the posterior cerebral arteries is normal and symmetric. No aneurysms are seen. NECK CT ANGIOGRAPHY: Carotid system: The great vessels demonstrate a conventional anatomy as they arise from the aortic arch. The origins of the common carotid arteries appear patent. The common carotid arteries demonstrate normal caliber and courses. The bifurcation regions are both widely patent. The internal carotid arteries demonstrate normal caliber. There is tortuosity and medial deviation of the left internal carotid period Posterior circulation: The origins of the vertebral arteries both appear widely patent. The more superior extracranial portions of both vertebral arteries also demonstrate normal courses and calibers. They join to form a normal appearing basilar artery. Soft tissues: Visualized neck soft tissues demonstrate no suspicious abnormalities. Bones: No suspicious bony lesions. Visualized cervical spine appears normally aligned. IMPRESSION: 1. Unremarkable CTA head. No stenosis, aneurysm, occlusion, or focal filling defect. 2. Patent carotids. 3. No significant findings in the vertebral basilar system. Comment: Findings were discussed with Dr. Em on 08/28/2023 at 0900 hours Any quantitative measurements of stenosis were performed using NASCET criteria. Dictated by: Douglas Webster M.D. on 08/28/2023 at 8:56 Approved by: Douglas Webster M.D. on 08/28/2023 at 9:01
--- NOTE | 2023-08-28 08:33 | ED.NAVMDI ---
HPI - Nausea/Vomiting/Diarrhea General Chief complaint: Nausea/Vomiting/Diarrhea Stated complaint: T-2 Shoulder pain/dizz/V pain lessening Time Seen by Provider: 08/28/23 08:15 Source: patient Mode of arrival: Wheelchair Limitations: no limitations History of Present Illness HPI Narrative: 52-year-old female with history of diabetes type 2 on oral medication and insulin as well as dyslipidemia. Patient notes that Monday she was having right neck pain radiating down to her right shoulder after a long flight. She states they rub some blue emu which is an Aspercreme type topical pain medication on the area and she developed vertigo sudden onset. Patient states she is had vertigo once before when she was she is never had additional episodes. She states pain is still present but is improving. She had some tingling on and off in her right upper extremity. She has not appreciated significant weakness or of her extremities. She states no tingling of her other extremities. Patient states no headache, vision has been a little blurred. She states vertigo is worsened with movement. She had nausea and vomiting the evening this happened on Monday the and has been persistent since. She is been able to drink liquids but has not been able to tolerate food. She states no diarrhea constipation, no dysuria urgency frequency or incontinence. She is been off balance. She denies any weakness or numbness in her lower extremities. Patient states no other new medications. She is had prior laparoscopic cholecystectomy, hernia repair x3 and hysterectomy. Allergic to codeine, Trulicity and bydureon. Patient states no tobacco, occasional alcohol, no recreational drugs. Related Data Home Medications Medication Instructions Recorded Confirmed citalopram 40 mg tablet 40 mg PO DAILY 05/04/21 08/28/23 liraglutide 0.6 mg/0.1 mL (18 mg/3 0.6 mg SUBCUT DAILY 05/04/21 08/28/23 mL) subcutaneous pen injector (Lendsquaretoza 2-Javed) metformin 500 mg tablet 2,000 mg PO DAILY 05/04/21 08/28/23 atorvastatin 20 mg tablet 20 mg PO BEDTIME 08/18/22 08/28/23 hydroxyzine HCl 25 mg tablet 25 mg PO 3XD 08/18/22 10/05/22 insulin glargine 100 unit/mL (3 10 unit SUBCUT QAM 08/18/22 08/28/23 mL) subcutaneous pen (Lantus Solostar U-100 Insulin) Allergies Allergy/AdvReac Type Severity Reaction Status Date / Time codeine Allergy Intermediate Rash Verified 11/17/22 14:55 dulaglutide [From Trulicity] Allergy Intermediate Rash Verified 11/17/22 14:55 exenatide [From Bydureon] Allergy Intermediate Rash Verified 10/05/22 08:19 Review of Systems Review of Systems ROS Unobtainable: All systems reviewed & are unremarkable except as noted in HPI and below Patient History Medical History Anesthesia complication Depression Diabetes Surgical History History of hysterectomy for benign disease Hx of hernia repair Hx of cholecystectomy History of hysteroscopy (05/14/21) H/O tubal ligation History of section Social History household members: spouse Smoking Status: Never smoker alcohol intake: never Smoking Status: Never smoker alcohol intake frequency: holidays/special occasions only Substance Use Type: does not use Exam Narrative Exam Narrative: GEN: well nourished, well appearing female, alert and oriented x 3, patient appears to be in mild distress. HEENT: Atraumatic, pupils are equal round reactive to light, extraocular movements are intact, no nystagmus, nares are clear, TMs are clear with no fluid, there is no conjunctival pallor. Throat is clear without any exudates, erythema, tonsillar enlargement or uvular deviation, no facial droop. No dysarthria or aphasia. HEART: Regular rate and rhythm without murmur, clicks, rubs. No carotid bruits, pulses are equal in upper and lower extremities LUNGS:Lungs clear to auscultation, no wheezes, rales, crackles, chest moves symmetrically ABD:bowel sounds normal, soft, non-tender, no guarding, rebound, rigidity, no masses noted, no hepatosplenomegaly :No CVA tenderness MSCL: Non-tender, no muscle atrophy, muscles strength 5/5 in lower extremities, patient does have drift with her right upper extremity and hand on the right, she is able to hold it up completely against gravity, full range of motion, normal gait NEURO:CN 2-12 intact, sensation decreased right upper and lower extremity to light touch comparison to left. finger nose finger test normal left patient does have some mild difficulty on the right, heel gill test normal in the left, some mild difficulty on the right but able to complete. Initial Vital Signs Initial Vital Signs: Vital Signs Pulse Rate 74 08/28/23 08:14 Respiratory Rate 18 08/28/23 08:14 Pulse Oximetry 99 08/28/23 08:14 Scores NIH Stroke Scale Level of Conciousness: Alert, keenly responsive Ask month/age: Answers both questions correctly. Open/close eyes, close hand: Performs both tasks correctly Best gaze horizontal: Normal Visual hirsch: No visual loss Facial palsy: Normal symetrical movement Left arm drift: No drift for full 10 sec Right arm drift: Drifts down, not to bed Left leg drift: No drift for full 5 sec Right leg drift: No drift for full 5 sec Limb ataxia: Present in two limbs Sensory on face/arms/legs: Mild to moderate sensory loss, can tell touch Best language: No aphasia, normal Dysarthria: Normal Extinction or inattention: No abnormality Total NIH Stroke scale score: 4 Course Orders Ordered: ED Orders 08/28/23 15:48 Education, smoking cessation ONGOING Acetaminophen (Acetaminophen 325 Mg Tablet) 650 mg PO Q6H PRN PRN Reason: Fever/Mild Pain (1-3) Enoxaparin Sodium (Enoxaparin 40 Mg/0.4 Ml Syringe) 40 mg SUBCUT DAILY SARAH Dextrose (D10w) 100 mls @ 1,200 mls/hr IV PRN PRN PRN Reason: Hypoglycemia Insulin Glargine (Insulin Glargine 100 Unit/Ml 3ml Pen) 10 unit SUBCUT 0800 SARAH Insulin Human Lispro (Insulin Lispro 100 Unit/Ml 3ml Vial) 0 unit SUBCUT ACHS [facility]; Protocol Last Admin: 08/28/23 17:40 Dose: 1 unit Documented By: MARK Co-signed By: ANNALISA Ketorolac Tromethamine (Ketorolac 10 Mg Tablet) 10 mg PO Q6HR PRN PRN Reason: Pain, Moderate (4-6) Stop: 09/02/23 17:26 Last Admin: 08/28/23 17:44 Dose: 10 mg Documented By: MARK Lorazepam (Lorazepam 2 Mg/Ml Inj) 1 mg IV Q4HR PRN PRN Reason: muscles spams, dizziness, naus Naloxone HCl (Naloxone 0.4 Mg/Ml Vial) 0.2 mg IV Q2MIN PRN PRN Reason: Opiate Reversal Ondansetron HCl (Ondansetron 4 Mg Odt) 4 mg PO Q8HR PRN PRN Reason: Nausea And Vomiting Discontinued Medications Aspirin (Aspirin 81 Mg Chew Tab) 324 mg PO NOW ONE Stop: 08/28/23 09:02 Last Admin: 08/28/23 09:06 Dose: 324 mg Documented By: RADHA Acetaminophen (Ofirmev) 1,000 mg in 100 mls @ 400 mls/hr IV NOW ONE Stop: 08/28/23 17:20 Acetaminophen (Ofirmev) 1,000 mg in 100 mls @ 400 mls/hr IV NOW ONE Stop: 08/28/23 11:00 Last Infusion: 08/28/23 11:10 Dose: Infused Documented By: Admin: 08/28/23 10:51 Dose: 400 mls/hr Documented By: RADHA Influenza Virus Vaccine (Influenza Vaccine Qiv 0.5 Ml Syringe) 0.5 ml IM .ONCE ONE Stop: 08/28/23 16:34 Last Admin: 08/28/23 17:41 Dose: 0.5 ml Documented By: MARK Ketorolac Tromethamine (Ketorolac 30 Mg/Ml Vial) 15 mg IV NOW ONE Stop: 08/28/23 11:17 Last Admin: 08/28/23 12:15 Dose: 15 mg Documented By: CONNIE Meclizine HCl (Meclizine Hcl 12.5 Mg Tablet) 25 mg PO NOW ONE Stop: 08/28/23 08:33 Last Admin: 08/28/23 08:45 Dose: 25 mg Documented By: RADHA Ondansetron HCl (Ondansetron 4 Mg/2 Ml Inj) 4 mg IV NOW ONE Stop: 08/28/23 08:31 Last Admin: 08/28/23 08:51 Dose: Not Given Documented By: RADHA Ondansetron HCl (Ondansetron 4 Mg/2 Ml Inj) 4 mg IV NOW ONE Stop: 08/28/23 10:28 Last Admin: 08/28/23 10:33 Dose: 4 mg Documented By: RADHA Sumatriptan Succinate (Sumatriptan 25 Mg Tablet) 100 mg PO NOW ONE Stop: 08/28/23 12:52 Last Admin: 08/28/23 13:19 Dose: 100 mg Documented By: ISRAEL Vital Signs Vital signs: Vital Signs - 8 hr 08/28/23 11:30 08/28/23 11:30 08/28/23 12:00 Pulse Rate 69 67 Respiratory Rate 14 14 Blood Pressure 110/63 Pulse Oximetry 96 95 Oxygen Delivery Method 08/28/23 12:00 08/28/23 12:23 08/28/23 12:23 Pulse Rate 74 Respiratory Rate 15 Blood Pressure 125/60 127/61 Pulse Oximetry 98 Oxygen Delivery Method 08/28/23 12:30 08/28/23 12:30 08/28/23 13:00 Pulse Rate 66 68 Respiratory Rate 12 9 L Blood Pressure 110/60 Pulse Oximetry 96 96 Oxygen Delivery Method Room Air 08/28/23 13:00 08/28/23 13:30 08/28/23 13:30 Pulse Rate 68 Respiratory Rate 10 L Blood Pressure 116/57 L 111/56 L Pulse Oximetry 96 Oxygen Delivery Method Room Air 08/28/23 14:00 08/28/23 14:00 08/28/23 14:30 Pulse Rate 62 62 Respiratory Rate 9 L 10 L Blood Pressure 118/72 Pulse Oximetry 97 97 Oxygen Delivery Method 08/28/23 14:30 Pulse Rate Respiratory Rate Blood Pressure 134/65 Pulse Oximetry Oxygen Delivery Method MDM - Nausea/Vomiting/Diarrhea Lab Data 08/28/23 08:20 08/28/23 08:20 Labs: Lab Results 08/28/23 08/28/23 Range/Units 08:20 08:54 WBC 7.0 (4.5-11.0) X10^3/uL RBC 4.74 (4.0-5.2) X10^6/uL Hgb 14.2 (12.0-16.0) g/dL Hct 42.5 (36-46) % MCV 89.6 (80-100) fL MCH 30.0 (26-34) PG MCHC 33.5 (30-36) % RDW 13.8 (11.6-14.8) % Plt Count 255 (150-400) X10^3/uL Neut % (Auto) 43.8 L (50-75) % Lymph % (Auto) 47.2 H (25-40) % [place] % (Auto) 4.2 (3-14) % Eos % (Auto) 3.4 (2-4) % Baso % (Auto) 1.4 (0-2) % Neut # (Auto) 3100 (2723-5413) /uL Lymph # (Auto) 3300 (1452-9352) /uL [place] # (Auto) 300 (0-900) /uL Eos # (Auto) 200 (0-450) /uL Baso # (Auto) 100 (0-100) /uL PT 11.2 (10.1-12.7) SECONDS INR 1.0 (0.9-1.3) APTT 33 (26-36) SECONDS Sodium 135 L (137-145) mmol/L Potassium 4.2 (3.4-5.1) mmol/L Chloride 100 (98-107) mmol/L Carbon Dioxide 26 (22-32) mmol/L BUN 7 (7-17) mg/dL Creatinine 0.52 (0.52-1.04) mg/dL Estimated GFR > 60 (>60) mL/min BUN/Creatinine Ratio 13.5 (6-22) Glucose 295 H (70-100) mg/dL Calcium 9.3 (8.4-10.2) mg/dL Total Bilirubin 1.2 (0.2-1.3) mg/dL AST 88 H (14-36) IU/L ALT 92 H (<35) IU/L Alkaline Phosphatase 98 (38-126) U/L Total Creatine Kinase 89 (30-135) U/L Troponin I < 0.012 (0.01-0.034) ng/mL Total Protein 7.1 (6.3-8.2) g/dL Albumin 4.2 (3.5-5.0) g/dL Globulin 2.9 (1.7-4.1) g/dL Albumin/Globulin Ratio 1.4 (1.0-2.8) U Opiates 300ng/mL cut Negative (Negative) Ur Oxycodone Screen Negative (Negative) Urine Methadone Screen Negative (Negative) Ur Barbiturates Screen Negative (Negative) U Tricyclic Antidepress Negative (Negative) Ur Phencyclidine Scrn Negative (Negative) Ur Amphetamines Screen Negative (Negative) U Methamphetamines Scrn Negative (Negative) Ur MDMA Scrn (Ecstasy) Negative (Negative) U Benzodiazepines Scrn Negative (Negative) Urine Cocaine Screen Negative (Negative) U Marijuana (THC) Screen Negative (Negative) Ethyl Alcohol < 10 ( - 10) mg/dL Urine Dip Bedside Urine Glucose 1000 mg/dl Bedside Urine Bilirubin - Negative Bedside Urine Ketone +/- 5 Urine Specific [place] 1.005 Bedside Urine Occult Blood - Negative Bedside Urine pH 6.0 Bedside Urine Protein - Negative Bedside Urine Urobilinogen - Negative Bedside Urine Nitrite - Negative Bedside Urine Leukocytes - Negative Esterase Imaging Data CT scan - head: Radiologist's Impression: CT results called to me by Dr. Darin Sanchez negative on non-con CT. CTA - brain/neck: Radiologist's Impression: [address] [address] [address] Scan Report Signed Patient: Danielle Layne MR#: [id number] : 1970 Acct:[id number] Age/Sex: 52 / F Date of Service: 08/28/23 Loc: ED Accession Number: [id number] Procedure: CT angio head and neck Ordering Provider: Laura Em D.O. PROCEDURE: CT ANGIO HEAD AND NECK INDICATIONS: vertigo, RUE weakness, numbness right started Monday TECHNIQUE: After the administration of intravenous contrast, 1 mm thick sections acquired from the aortic arch through the [place]. 3-dimensional nuvkwpb-ohzzpkwdr-qgytklhutf (MIP) and/or volume rendering reformats were acquired of the central intracranial vasculature and neck separately. For radiation dose reduction, the following was used: automated exposure control, adjustment of mA and/or kV according to patient size. COMPARISON: [facility], CT, CT STROKE, 08/28/2023, 8:37. FINDINGS: Image quality: Diagnostic. BRAIN: CSF spaces: Ventricles are normal in size and shape. Basal cisterns are patent. No extra-axial fluid collections. Brain: No significant abnormality of the brain can be seen. Skull and face: Calvarium and facial bones appear intact, without suspicious lesions. Orbits appear normal. Sinuses: Sinuses and mastoids are clear. HEAD CT ANGIOGRAPHY: Anterior circulation: Intracranial internal carotid arteries are normal in size and flow. The flow within the paired anterior cerebral arteries is normal and symmetric. The flow within the middle cerebral arteries is normal and symmetric. There is normal variant atresia of the A1 segment of the right anterior cerebral artery. Anterior cerebral arteries are otherwise widely patent. No aneurysms are seen. Posterior circulation: Visualized portions of the vertebral arteries demonstrate normal caliber, and join to form a normal appearing basilar artery. Flow within the posterior cerebral arteries is normal and symmetric. No aneurysms are seen. NECK CT ANGIOGRAPHY: Carotid system: The great vessels demonstrate a conventional anatomy as they arise from the aortic arch. The origins of the common carotid arteries appear patent. The common carotid arteries demonstrate normal caliber and courses. The bifurcation regions are both widely patent. The internal carotid arteries demonstrate normal caliber. There is tortuosity and medial deviation of the left internal carotid period Posterior circulation: The origins of the vertebral arteries both appear widely patent. The more superior extracranial portions of both vertebral arteries also demonstrate normal courses and calibers. They join to form a normal appearing basilar artery. Soft tissues: Visualized neck soft tissues demonstrate no suspicious abnormalities. Bones: No suspicious bony lesions. Visualized cervical spine appears normally aligned. IMPRESSION: 1. Unremarkable CTA head. No stenosis, aneurysm, occlusion, or focal filling defect. 2. Patent carotids. 3. No significant findings in the vertebral basilar system. Comment: Findings were discussed with Dr. Em on 08/28/2023 at 0900 hours Any quantitative measurements of stenosis were performed using NASCET criteria. Dictated by: Douglas Webster M.D. on 08/28/2023 at 8:56 Approved by: Douglas Webster M.D. on 08/28/2023 at 9:01 MR brain: Radiologist's Impression: [place] [address] Magnetic Resonance Report Signed Patient: Danilele Layne MR#: [id number] : 1970 Acct:[id number] Age/Sex: 52 / F Date of Service: 08/28/23 Loc: ED Accession Number: [id number] Procedure: MR head/brain wo con Ordering Provider: Laura Em D.O. PROCEDURE: MR HEAD/BRAIN WO CON INDICATIONS: vertigo, rue weakness, decreased sensation rue and rle TECHNIQUE: Noncontrast axial T1 spin echo, axial T2 fast spin echo, sagittal and axial FLAIR, coronal T2 fast spin echo, axial gradient echo, axial diffusion and ADC through the brain. COMPARISON: [facility], CT, CT ANGIO HEAD AND NECK, 08/28/2023, 8:37. [facility], CT, CT STROKE, 08/28/2023, 8:37. FINDINGS: Image quality: Diagnostic, with note made of motion artifact. CSF Spaces: Basal cisterns are patent. No extra-axial fluid collections. Ventricles are normal in size and shape. Brain: No intracranial masses or hemorrhage. [place]/white matter interface is normal. Brainstem appears normal. Diffusion-weighted images demonstrate no acute ischemic insult. No chronic ischemic insults. Normal intravascular flow voids are present. Skull and face: Calvarium has normal marrow signal. Orbits appear normal. Sinuses: Sinuses and mastoids are clear. IMPRESSION: No findings of acute or subacute infarction can be seen. Dictated by: Hill Torres M.D. on 08/28/2023 at 9:29 Approved by: Hill Torres M.D. on 08/28/2023 at 9:30 ECG Data Attestation: I personally reviewed and interpreted this ECG as follows: Interpretation: Sinus rhythm rate of 71, FL 176 QRS 72 QTC 447. MDM Narrative Medical decision making narrative: 52-year-old female who reports right upper neck and shoulder pain with some tingling down her right upper extremity starting fairly abruptly on Monday the , patient states they were rubbing some ask for cream on that localized area when she started to get vertigo symptoms. She had episodes quite remotely when she was but none since. On examination she does have some acute neurologic changes with some drift on her right upper extremity some mild ataxia of right upper extremity as well as lower. And mild sensation change of her right upper and lower extremity compared to her left. Patient's NIH score is 4, she does have risk factors with diabetes and dyslipidemia. She is not hypertensive here in the department. She is far outside the window for tPA or code IR at 48+ hours from symptom onset. Patient is not anticoagulated. Stroke workup was initiated discussed with patient potential differential. Head CT and CT angio were obtained. Non-con CT is negative. CT angio was negative. Patient given aspirin 324 mg. Labs, EKG: Glucose of 295, sodium 135 AST ALT 88 92, negative troponin. Platelets are 255 white count of 7, hemoglobin of 14. Tox negative. MR brain w/o contrast ordered pending. Spoke with Dr. Ludwig, hospitalist: Asked to wait for MR results if positive we will keep for stroke workup if negative would like to treat possibly for atypical migraine. States can hold off on neurology consult and he saw patient here in the department. MR brain is negative. Patient was given Toradol with minimal improvement, dose of sumatriptan after discussion with Dr. Ludwig. Continues to have symptoms with minimal improvement. Re-contacted Dr. Ludwig he accepts for admission. Discharge Plan Departure Patient Disposition: Admitted as Observation Clinical Impression: Vertigo, Right sided weakness, Headache Admit Date/Time: 08/28/23 14:40 Admit Provider: Ernst Ludwig
--- NOTE | 2023-08-28 08:37 | PC.NURSE ---
Patient denies nausea currently. Pt is dizzy with room spinning and her right shoulder pain is worse now than when she arrived. Provider aware.
[2023-08-28 08:40] LABS: Add Manual Diff / Slide Review NO; Basophils Absolute Auto 100 /uL (0-100); Basophils Percent Auto 1.4 % (0-2); Eosinophils Absolute Auto 200 /uL (0-450); Eosinophils Percent Auto 3.4 % (2-4); Hematocrit 42.5 % (36-46); Hemoglobin 14.2 g/dL (12.0-16.0); Lymphocytes Absolute Auto 3300 /uL (1100-4500); Lymphocytes Percent Auto 47.2 % (25-40); Mean Corpuscular HGB Conc 33.5 % (30-36); Mean Corpuscular Volume 89.6 fL (80-100); Monocytes Absolute Auto 300 /uL (0-900); Monocytes Percent Auto 4.2 % (3-14); Neutrophils Absolute Auto 3100 /uL (1500-7000); Neutrophils Percent Auto 43.8 % (50-75); Platelet Count 255 X10^3/uL (150-400); Red Blood Cell Count 4.74 X10^6/uL (4.0-5.2); Red Cell Distribution Width 13.8 % (11.6-14.8)
[2023-08-28 08:41] LABS: Prothrombin Time 11.2 SECONDS (10.1-12.7)
[2023-08-28] MEDS: MECLIZINE HCL 12.5 MG TABLET 25 MG PO (08:45)
[2023-08-28 08:56] LABS: PTT Partial Thromboplastin Tim 33 SECONDS (26-36)
[2023-08-28] MEDS: ASPIRIN 81 MG CHEW TAB 324 MG PO (09:06)
[2023-08-28 09:13] LABS: UR Morphine/Opiate cutoff 300 Negative (Negative); Ur Creatinine Normal (Normal); Ur Specific Gravity Normal (Normal); Urine Amphetamines Negative (Negative); Urine Barbiturates Negative (Negative); Urine Benzodiazepines Negative (Negative); Urine Cocaine Negative (Negative); Urine MDMA Negative (Negative); Urine Methadone Negative (Negative); Urine Methamphetamines Negative (Negative); Urine Oxycodone Negative (Negative); Urine Phencyclidine Negative (Negative); Urine Tetrahydrocannabinol Negative (Negative); Urine Tricyclic Antidepressant Negative (Negative); Urine pH Normal (Normal)
[2023-08-28 09:16] LABS: Alanine Aminotransferase 92 IU/L (<35); Albumin 4.2 g/dL (3.5-5.0); Albumin Globulin Ratio 1.4 (1.0-2.8); Alkaline Phosphatase 98 U/L (38-126); Aspartate Aminotransferase 88 IU/L (14-36); BUN Creatinine Ratio 13.5 (6-22); Bilirubin Total 1.2 mg/dL (0.2-1.3); Blood Urea Nitrogen 7 mg/dL (7-17); Calcium 9.3 mg/dL (8.4-10.2); Carbon Dioxide 26 mmol/L (22-32); Chloride 100 mmol/L (98-107); Creatine Kinase 89 U/L (30-135); Estimated Glomerular Filt Rate > 60 mL/min (>60); Ethanol (ETOH) < 10 mg/dL; Globulin 2.9 g/dL (1.7-4.1); Glucose 295 mg/dL (70-100); HEMOLYSIS < 15 (0-50); Potassium 4.2 mmol/L (3.4-5.1); Sodium 135 mmol/L (137-145); Total Protein 7.1 g/dL (6.3-8.2)
[2023-08-28 09:27] LABS: Troponin I < 0.012 ng/mL (0.01-0.034)
--- NOTE | 2023-08-28 09:57 | DI.MRI.S_ITS ---
PROCEDURE: MR HEAD/BRAIN WO CON INDICATIONS: vertigo, rue weakness, decreased sensation rue and rle TECHNIQUE: Noncontrast axial T1 spin echo, axial T2 fast spin echo, sagittal and axial FLAIR, coronal T2 fast spin echo, axial gradient echo, axial diffusion and ADC through the brain. COMPARISON: [facility], CT, CT ANGIO HEAD AND NECK, 08/28/2023, 8:37. [facility], CT, CT STROKE, 08/28/2023, 8:37. FINDINGS: Image quality: Diagnostic, with note made of motion artifact. CSF Spaces: Basal cisterns are patent. No extra-axial fluid collections. Ventricles are normal in size and shape. Brain: No intracranial masses or hemorrhage. [place]/white matter interface is normal. Brainstem appears normal. Diffusion-weighted images demonstrate no acute ischemic insult. No chronic ischemic insults. Normal intravascular flow voids are present. Skull and face: Calvarium has normal marrow signal. Orbits appear normal. Sinuses: Sinuses and mastoids are clear. IMPRESSION: No findings of acute or subacute infarction can be seen. Dictated by: Hill Torres M.D. on 08/28/2023 at 9:29 Approved by: Hill Torres M.D. on 08/28/2023 at 9:30
[2023-08-28] MEDS: ONDANSETRON 4 MG/2 ML INJ IV (10:33)
--- NOTE | 2023-08-28 10:35 | PC.NURSE ---
Pt complains of intense headache and nausea, feels like she is going to vomit. Provider made aware, new orders established.
[2023-08-28] MEDS: ACETAMINOPHEN IV 1,000 MG/100 ML VIAL 400 MG IV (10:51)
[2023-08-28] MEDS: KETOROLAC 30 MG/ML VIAL 15 MG IV (12:15)
[2023-08-28] MEDS: SUMAtriptan 25 MG TABLET 100 MG PO (13:19)
--- NOTE | 2023-08-28 14:40 | P.HP_ITS ---
History of Present Illness History of Present Illness Date Patient Seen: 08/28/23 Time Patient Seen: 13:00 Chief complaint: T-2 bad pain in shoulder/dizz/V pain is going away Narrative: This is a 52 year old female with PMH of DM, prior BPPV during , depression who presents with persistent and intractable dizziness. She states this started a few days ago after drive back from [place]. She had severe R shoulder pain after and rubbed some blue emu topical pain medication over the area. She then developed shortly after dizziness and room spinning. It is worse when she lays down and moves her head mainly to the R. She developed continued shoulder pain which shoots down into her R hand and had a headache that started yesterday. She denies recent nasal congestion or runny nose, no fever, chills, or sick contacts. She denies any abdominal pain, dysuria, urinary frequency. She reports some tingling in her R arm with movement, but denied weakness in her R arm or leg. [facility] Medical History Anesthesia complication Depression Diabetes Surgical History History of hysterectomy for benign disease Hx of hernia repair Hx of cholecystectomy History of hysteroscopy (05/14/21) H/O tubal ligation History of section Social History household members: spouse Smoking Status: Never smoker alcohol intake: never Meds Home Medications and Allergies Home Medications Medication Instructions Recorded Confirmed Type citalopram 40 mg tablet 40 mg PO DAILY 05/04/21 10/05/22 History liraglutide 0.6 mg/0.1 mL (18 mg/3 0.6 mg SUBCUT DAILY 05/04/21 10/05/22 History mL) subcutaneous pen injector (Victoza 2-Javed) metformin 500 mg tablet 2,000 mg PO DAILY 05/04/21 10/05/22 History hydrocodone 5 mg-acetaminophen 325 1 tab PO BID PRN pain #10 tabs 04/27/22 10/05/22 Rx mg tablet atorvastatin 20 mg tablet 20 mg PO BEDTIME 08/18/22 10/05/22 History hydroxyzine HCl 25 mg tablet 25 mg PO 3XD 08/18/22 10/05/22 History insulin glargine 100 unit/mL (3 10 unit SUBCUT QAM 08/18/22 10/05/22 History mL) subcutaneous pen (Lantus Solostar U-100 Insulin) oxycodone 5 mg tablet 10 mg (2 x 5 mg) PO Q6H PRN Pain, 08/19/22 10/05/22 Rx Severe (7-10) #20 tabs Allergies Allergy/AdvReac Type Severity Reaction Status Date / Time codeine Allergy Intermediate Rash Verified 11/17/22 14:55 dulaglutide [From Trulicity] Allergy Intermediate Rash Verified 11/17/22 14:55 exenatide [From Bydureon] Allergy Intermediate Rash Verified 10/05/22 08:19 Review of Systems Review of Systems Narrative: All other systems reviewed with the patient and are negative unless otherwise stated. Exam Vital Signs (past 8 hours): - 08/28/23 08:14 08/28/23 08:17 08/28/23 08:30 Temperature 97.7 F Pulse Rate 74 79 71 Respiratory Rate 18 18 17 Blood Pressure 132/67 Pulse Oximetry 99 98 99 Oxygen Delivery Method Room Air 08/28/23 08:55 08/28/23 08:55 08/28/23 09:00 Temperature Pulse Rate 70 70 Respiratory Rate 15 15 Blood Pressure 125/59 L Pulse Oximetry 99 99 Oxygen Delivery Method Room Air Room Air 08/28/23 09:00 08/28/23 09:30 08/28/23 10:27 Temperature Pulse Rate 69 71 Respiratory Rate 23 Blood Pressure 124/61 Pulse Oximetry 98 98 Oxygen Delivery Method Room Air 08/28/23 10:27 08/28/23 10:30 08/28/23 10:30 Temperature Pulse Rate 68 Respiratory Rate 11 L Blood Pressure 134/61 126/65 Pulse Oximetry 99 Oxygen Delivery Method Room Air 08/28/23 11:00 08/28/23 11:00 08/28/23 11:30 Temperature Pulse Rate 72 69 Respiratory Rate 12 14 Blood Pressure 128/71 Pulse Oximetry 98 96 Oxygen Delivery Method 08/28/23 11:30 08/28/23 12:00 08/28/23 12:00 Temperature Pulse Rate 67 Respiratory Rate 14 Blood Pressure 110/63 125/60 Pulse Oximetry 95 Oxygen Delivery Method 08/28/23 12:23 08/28/23 12:23 08/28/23 12:30 Temperature Pulse Rate 74 66 Respiratory Rate 15 12 Blood Pressure 127/61 Pulse Oximetry 98 96 Oxygen Delivery Method 08/28/23 12:30 08/28/23 13:00 08/28/23 13:00 Temperature Pulse Rate 68 Respiratory Rate 9 L Blood Pressure 110/60 116/57 L Pulse Oximetry 96 Oxygen Delivery Method Room Air 08/28/23 13:30 08/28/23 13:30 Temperature Pulse Rate 68 Respiratory Rate 10 L Blood Pressure 111/56 L Pulse Oximetry 96 Oxygen Delivery Method Room Air Oxygen Delivery Method Room Air Narrative Exam Narrative: General:? Patient is well developed and well nourished, mildly uncomfortable appearing, keeping head still HEENT:? Normocephalic, atraumatic, extraocular muscles intact, oral pharynx is clear and mucous membranes are moist. Neck: tenderness to posterior neck with minimal palpitation, especially to paraspinal area on the R. Chest:? Normal AP diameter and contour without kyphoscoliosis, no tachypnea, equal chest rise bilaterally. Lungs:? CTA b/l no wheezing rhonchi or rales. Cardio:?RRR no m/r/g. Abdomen: S NT ND. Musculoskeletal:? Muscle strength and tone are equal within normal limits, no deformity. + spurlings on the R. Negative tinel testing on the R Extremities: No edema or joint effusions. No cyanosis or clubbing. Skin:? Pale,? Warm to touch,dry and intact without rashes, ulcerations or petechiae.? Neuro:? Alert and orientated x3,? sensation to touch intact in all extremities, no gross deficits noted of cranial nerves. Strength is +5/5 on the R, may have diminished hand fitness trainer? Psych:? Patient has a well-kept appearance, appropriate affect, mental status attitude thought context and judgment are appropriate for age. Objective ECG Impression: Normal sinus rhythm Low voltage QRS Labs 08/28/23 08:20 08/28/23 08:20 Labs: Laboratory Results - last 24 hr 08/28/23 08/28/23 08:20 08:54 WBC 7.0 RBC 4.74 Hgb 14.2 Hct 42.5 MCV 89.6 MCH 30.0 MCHC 33.5 RDW 13.8 Plt Count 255 Neut % (Auto) 43.8 L Lymph % (Auto) 47.2 H [place] % (Auto) 4.2 Eos % (Auto) 3.4 Baso % (Auto) 1.4 Neut # (Auto) 3100 Lymph # (Auto) 3300 [place] # (Auto) 300 Eos # (Auto) 200 Baso # (Auto) 100 PT 11.2 INR 1.0 APTT 33 Sodium 135 L Potassium 4.2 Chloride 100 Carbon Dioxide 26 BUN 7 Creatinine 0.52 Estimated GFR > 60 BUN/Creatinine Ratio 13.5 Glucose 295 H Calcium 9.3 Total Bilirubin 1.2 AST 88 H ALT 92 H Alkaline Phosphatase 98 Total Creatine Kinase 89 Troponin I < 0.012 Total Protein 7.1 Albumin 4.2 Globulin 2.9 Albumin/Globulin Ratio 1.4 U Opiates 300ng/mL cut Negative Ur Oxycodone Screen Negative Urine Methadone Screen Negative Ur Barbiturates Screen Negative U Tricyclic Antidepress Negative Ur Phencyclidine Scrn Negative Ur Amphetamines Screen Negative U Methamphetamines Scrn Negative Ur MDMA Scrn (Ecstasy) Negative U Benzodiazepines Scrn Negative Urine Cocaine Screen Negative U Marijuana (THC) Screen Negative Ethyl Alcohol < 10 Assessment & Plan Assessment & Plan narrative: 1. Persistent peripheral vertigo - imaging including MRI negative in the ER, exam is consistent with a peripheral source, but differential does include atypical migraine as well. - sumatriptan attempted x1 in the ER - continue supportive care with antinauseals, try ativan to see if relief of R neck spasm. - consider additional C-spine imaging depending on ongoing neck and R arm discomfort. - PT eval for vestibular therapy evaluation and treatment. - troponin negative, EKG unremarkable, no chest pain to suggest atypical ACS. - may be due to hyperglycemia as well, check A1c and give sliding scale insulin. 2. type 2 diabetes - resume home insulin lantus 10 daily, sliding scale ordered. Will obtain A1c as noted above. - hold metformin with nausea - continue home statin. 3. Depression - continue citalopram 4. Elevated transaminase level - likely due to NAZARIO, continue to follow, no RUQ pain. Consider ultrasound depending on trend. Code: Full Dispo: admitted observation, likely discharge home once symptoms improving. I have utilized all available immediate resources to obtain, update, or review the patient's current medications.
--- NOTE | 2023-08-28 15:44 | PT-IP ANOTE ---
Addendum entered and electronically signed by Ambar Campbell, PT 08/28/23 16:06: Will likely need to coordinate with nursing to avoid meclizine in the AM for most accurate vestibular assessment. Original Note: Received PT orders and completed chart review. Pt with remote history of BPPV to be assessed for peripheral vestibular dysfunction (CT, CTA, and MRI all negative). Pt currently transferring from ED to acute care. Will await H&P and nursing assessments prior to initiating PT evaluation.
--- NOTE | 2023-08-28 17:23 | PC.NURSE ---
Patient arrived from ED at approximately 1535 this afternoon. She is A&OX4, able to ambulate to BR with steady gait SBA to void. VSS, afebrile on RA. She reports pain down R shoulder and arm 5-6/10. BG 135 on accucheck. She tolerates dinner well. Continuous monitoring. Tele NSR. Bed alarm on, valenitne light in reach.
[2023-08-28] MEDS: INSULIN LISPRO 100 UNIT/ML 3ML VIAL SUBCUT (17:40)
[2023-08-28] MEDS: INFLUENZA VACCINE QIV 0.5 ML SYRINGE IM (17:41)
[2023-08-28] MEDS: KETOROLAC 10 MG TABLET PO (17:44)
[2023-08-29 03:00] VITALS: BP 126/73; PULSE 82; RESP 18; TEMP 36.3; O2SAT 96
[2023-08-29 07:19] LABS: Hemoglobin A1C% w Est Avg Glu 10.9 % (4.0-6.0)
[2023-08-29 07:30] VITALS: O2SAT 98
[2023-08-29 08:00] VITALS: BP 113/49; PULSE 73; RESP 16; TEMP 36.6; O2SAT 99
[2023-08-29 08:37] LABS: BUN Creatinine Ratio 19.1 (6-22); Blood Urea Nitrogen 9 mg/dL (7-17); Calcium 8.7 mg/dL (8.4-10.2); Carbon Dioxide 24 mmol/L (22-32); Chloride 102 mmol/L (98-107); Estimated Glomerular Filt Rate > 60 mL/min (>60); Glucose 237 mg/dL (70-100); HEMOLYSIS 36 (0-50); Magnesium 1.6 mg/dL (1.6-2.3); Potassium 4.3 mmol/L (3.4-5.1); Sodium 133 mmol/L (137-145)
[2023-08-29] MEDS: INSULIN LISPRO 100 UNIT/ML 3ML VIAL SUBCUT ×2 (09:04→12:20)
[2023-08-29] MEDS: ENOXAPARIN 40 MG/0.4 ML SYRINGE SUBCUT (09:04)
[2023-08-29] MEDS: INSULIN GLARGINE 100 UNIT/ML 3ML PEN 10 UNIT SUBCUT (09:05)
[2023-08-29] MEDS: MAGNESIUM CHLORIDE 64 MG TABLET 128 MG PO (10:14)
--- NOTE | 2023-08-29 11:23 | DI.MRI.S_ITS ---
PROCEDURE: MR CERVICAL SPINE WO CON INDICATIONS: suspected cervicogenic dizziness/vertigo, neck pain TECHNIQUE: Noncontrast sagittal T1 spin echo and T2 fast spin echo, sagittal STIR, foraminal oblique sagittal T2 fast spin echo, and axial gradient echo or T2 fast spin echo through the cervical spine. COMPARISON: [facility], CT, CT ANGIO HEAD AND NECK, 08/28/2023, 8:37. [facility], CT, CT STROKE, 08/28/2023, 8:37. [facility], MR, MR HEAD/BRAIN WO CON, 08/28/2023, 9:54. FINDINGS: Image quality: Excellent. Alignment and Curvature: There is normal bony alignment. Bone Marrow: Marrow demonstrates normal overall signal. Spinal Cord: Visualized spinal cord has normal size and signal. No cerebellar tonsillar herniation. Paraspinous Soft Tissues: No paravertebral masses. Prevertebral soft tissues are normal in thickness. C2-C3: No significant abnormality is seen. C3-C4: The disc height and disk signal are relatively well-preserved. A mild degree of generalized disc osteophyte complex is seen. There is [id number] right-sided and moderate to prominent left-sided facet hypertrophy. There is at least moderate left-sided and moderate right-sided neural foraminal narrowing. Minimal central canal narrowing is seen. C4-C5: The disc height is well-preserved. Loss of disc signal is seen at this level. Mild to moderate disc osteophyte complex is seen. Moderate facet hypertrophy is seen, left worse than right. At least moderate bilateral neural foraminal narrowing can be seen. Mild to moderate central canal narrowing is seen. C5-C6: The disc height is well-preserved. Loss of disc signal is seen at this level. Mild to moderate disc osteophyte complex is seen. Moderate facet hypertrophy is seen, left worse than right. There is at least moderate left-sided and minimal right-sided neural foraminal narrowing. Mild central canal narrowing is seen. C6-C7: Mild loss of disc height is seen. Loss of disc signal is seen. Moderate generalized disc osteophyte complex is seen. Moderate facet joint hypertrophy is seen. There is at least moderate left-sided and moderate right-sided neural foraminal narrowing. Mild central canal narrowing is seen. C7-T1: The disc height is well-preserved. Loss of disc signal is seen at this level. No significant neural foraminal or central canal narrowing can be seen. IMPRESSION: Multiple levels of cervical spine degenerative change are seen, which are overall worst at C6-C7. Dictated by: Hill Torres M.D. on 08/29/2023 at 11:00 Approved by: Hill Torres M.D. on 08/29/2023 at 11:05
[2023-08-29] MEDS: CITALOPRAM 10 MG TABLET 40 MG PO (11:29)
[2023-08-29] MEDS: ACETAMINOPHEN 325 MG TABLET 650 MG PO (11:30)
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
[2023-08-29 12:00] VITALS: BP 104/50; PULSE 80; RESP 16; TEMP 36.2; O2SAT 99
[2023-08-29] MEDS: KETOROLAC 10 MG TABLET PO (12:20)
--- NOTE | 2023-08-29 12:57 | CM.DANOTE ---
DCP Assessment Note: Patient is a 52yo F here following dizziness/pain in shoulder. PCP Angie Marie EMBALMER APPRENTICE reviewed EMR. PT rec home with assistance. EMBALMER APPRENTICE entered room and introduced self and role. Patient resting in bed eating lunch. Patient lives at home with spouse Calvin ([phone]) and two adult sons. Patient reports being IADLs/drives at baseline. no DME. Patient denies need for resources at this time. to transport home. Plan: likely home with spouse when medically stable, to transport home. No needs identified at this time. CM team will continue to follow as needed. EWELINA Gore Discharge Planning/Care Management CM Discharge Assessment Start: 08/29/23 12:54 Freq: Status: Active Protocol: Document 08/29/23 12:54 SL (Rec: 08/29/23 12:57 [id number]) Discharge Planning Assessment Assigned Manager Planning EWELINA Mcmullen DPOA/Assigned Designee Name Calvin (spouse) Contact Information [phone] Advance Directives? No History Provided By Patient,Medical Record Prior Living Arrangements House Household Members spouse Type of transporation used prior to Drives own vehicle admit Independent with ADL's Yes Is patient alert and oriented? Yes Discharge Plan Home Transportation Arrangement Spouse Referrals Initiated None needed Whiteboard Updated in Patient Room with Yes name and ext. # of Manager Planning Review Status In Process Next Review Type Continued Stay Review
--- NOTE | 2023-08-29 15:44 | PC.NURSE ---
Discharge: Feels ready to d/c to home. MD spoke with pt for a long time regarding d/c instructions. PT here to see her. Worked with her specifically for vertigo. Knows she should move slowly, stop if dizzy, see PT note. Discharge packet given and understood. Rx has been esent. Questions answered. Pt d/c to home via auto w/spouse.
--- NOTE | 2023-08-30 21:59 | PM.DS.1 ---
History of Present Illness History of Present Illness Date Patient Seen: 08/28/23 Time Patient Seen: 13:00 Chief complaint: T-2 bad pain in shoulder/dizz/V pain is going away Narrative: Per admitting physician: This is a 52 year old female with PMH of DM, prior BPPV during , depression who presents with persistent and intractable dizziness. She states this started a few days ago after drive back from [place]. She had severe R shoulder pain after and rubbed some blue emu topical pain medication over the area. She then developed shortly after dizziness and room spinning. It is worse when she lays down and moves her head mainly to the R. She developed continued shoulder pain which shoots down into her R hand and had a headache that started yesterday. She denies recent nasal congestion or runny nose, no fever, chills, or sick contacts. She denies any abdominal pain, dysuria, urinary frequency. She reports some tingling in her R arm with movement, but denied weakness in her R arm or leg. Discharge Providers Provider Date of admission: 08/28/23 14:40 Discharge Date: 08/29/23 Primary care physician: Angie Colmenares PA-C Consults: 08/28/23 14:51 Consult to Physical Therapy Evaluate & Treat Comment: Vestibular therapy Physician Instructions: Evaluate and Treat Discharge provider: Sadiq Rangel MD Summary Hospital Course Discharge Diagnosis: 1. Cervicogenic dizziness and neck pain 2. Type 2 Diabetes 3. Depression Hospital Course: Ms. Layne was admitted with dizziness. She had workup which was negative for stroke on MRI. She did have significant neck pain. She was noted by PT to have neck tenderness and tension. CT showed neural foraminal stenosis which is likely the source of her symptoms. She is encouraged to follow up with PT. She is referred back to PCP to make sure she is improving and consider surgical referral if she does not improve. Exam Vital Signs (past 8 hours): Oxygen Delivery Method Room Air Oxygen Flow Rate 0 Objective Labs 08/28/23 08:20 08/29/23 06:25 [facility] Medical History Anesthesia complication Depression Diabetes Surgical History History of hysterectomy for benign disease Hx of hernia repair Hx of cholecystectomy History of hysteroscopy (05/14/21) H/O tubal ligation History of section Social History household members: spouse Smoking Status: Never smoker alcohol intake: never Discharge Plan Discharge Plan Patient Disposition: Home Provider Discharge Comment: Ms. Layne came to the hospital with dizziness. She was found to have stenosis in her cervical spine likely causing pinched nerve that caused her neck discomfort and dizziness. She felt improved in the hospital and was able to go home. She should follow up with her PCP and with PT Discharge orders & Medications Prescriptions: New cyclobenzaprine 10 mg Tablet 5 mg PO Q8HR PRN (Reason: Muscle Spasm) Qty: 20 0RF Continued metformin 500 mg tablet 2,000 mg PO DAILY Victoza 2-Javed 0.6 mg/0.1 mL (18 mg/3 mL) pen injector 0.6 mg SUBCUT DAILY citalopram 40 mg tablet 40 mg PO DAILY atorvastatin 20 mg tablet 20 mg PO BEDTIME insulin glargine [Lantus Solostar U-100 Insulin] 100 unit/mL (3 mL) insulin pen 10 unit SUBCUT QAM hydroxyzine HCl 25 mg tablet 25 mg PO 3XD Follow up/Referrals: Angie Colmenares PA-C [Primary Care Provider] - 1 Week (admitted with dizziness, likely secondary to cervical stenosis) Diet/Activity/Treatments Diet: Carb-consistent/Diabetic Visit Report/Discharge Packet Instructions: DI for Vertigo, DI for Headache, DI for Muscle Weakness, Cyclobenzaprine (By mouth) Stand Alone Forms: Patient Portal/API, Stroke Signs & Symptoms Discharge Data Primary Care Provider: Angie Colmenares Attending Provider: Ernst Ludwig Admit Date/Time: 08/28/23 14:40 Discharges patient from system. Discharge Date/Time: 08/29/23 15:15 Quality VTE Deep Vein Thrombosis/Pulmonary Embolism Present on Admission: No
== END 2023-08-29 15:15 | disposition home or self-care (01) ==
LOC: ED 08:46 → AC 14:40
PROVIDERS: Admitting Provider Internal Medicine; Emergency Provider Emergency Medicine; PCP Physician Assistant; Referring Provider Emergency Medicine; Visit Provider Internal Medicine
DX: R11.2 Nausea with vomiting, unspecified (principal); M54.2 Cervicalgia; R29.704 NIHSS score 4; E11.9 Type 2 diabetes mellitus without complications; Z79.4 Long term (current) use of insulin; F32.A Depression, unspecified; Z23 Encounter for immunization
CPT/HCPCS: 36415; 70450; 70496; 70498; 70551; 72141; 80048; 80053; 80305; 80320; 81003; 82550; 82962; 83036; 83735; 84484; 85025; 85610; 85730; 90471; 90656; 93005; 93010; 95992; 96365; 96372; 96375; 97163; 97535; 99285; G0378; J0131; J1650; J1815; J1885; J2405; Q2038; Q9967

== ENCOUNTER 2024-06-06 09:37 | Emergency (ER) | payer OTHER, SELFPAY ==
[2023-08-28 16:27] VITALS: BMI 31.6
[2024-06-06 09:43] VITALS: BP 129/88; PULSE 78; O2SAT 98
[2024-06-06 09:44] VITALS: BP 129/88; PULSE 83; RESP 18; TEMP 36.6; O2SAT 99; BMI 31.8
--- NOTE | 2024-06-06 10:02 | ED.BACK ---
HPI - Back Pain/Injury General Chief Complaint: Back Pain/Injury Stated Complaint: low back injury Time Seen by Provider: 06/06/24 09:39 Source: patient History of Present Illness HPI Narrative: 53-year-old female presents for lower back pain. Patient states that she was bending down under a computer when she felt her back spasm up. Patient states that she has had back pain in the past and thinks that she may have flared her back muscles by lifting and cleaning this week. Patient was at work when injury occurred, no medications taken prior to arrival. Patient works across the street and was able to walk to the emergency department for evaluation. Denies bowel or bladder incontinence, denies saddle anesthesia. Related Data Home Medications Medication Instructions Recorded Confirmed citalopram 40 mg tablet 40 mg PO DAILY 05/04/21 12/25/23 liraglutide 0.6 mg/0.1 mL (18 mg/3 0.6 mg SUBCUT DAILY 05/04/21 12/25/23 mL) subcutaneous pen injector ([employer] 2-Javed) atorvastatin 20 mg tablet 20 mg PO BEDTIME 08/18/22 12/25/23 hydroxyzine HCl 25 mg tablet 25 mg PO 3XD 08/18/22 12/25/23 insulin glargine 100 unit/mL (3 10 unit SUBCUT QAM 08/18/22 12/25/23 mL) subcutaneous pen (Lantus Solostar U-100 Insulin) albuterol sulfate 90 mcg/actuation inhalation 12/25/23 12/25/23 aerosol inhaler diclofenac sodium 1 % topical gel topical 12/25/23 12/25/23 glucagon 3 mg/actuation nasal 0 mg intranasal 12/25/23 12/25/23 spray (Baqsimi) metformin 500 mg tablet,extended 1,000 mg PO BID 12/25/23 12/25/23 release 24 hr pen needle, diabetic 32 gauge x #100 ea 12/25/23 12/25/2311/16 (BD Ultra-Fine Micro Pen Needle) Previous Rx's Medication Instructions Recorded benzonatate 200 mg capsule 200 mg PO BID PRN cough #28 caps 12/25/23 prednisone 20 mg tablet 40 mg (2 x 20 mg) PO DAILY #6 tabs 12/25/23 methocarbamol 500 mg tablet 500 mg PO TID PRN muscle spasm #60 06/06/24 tabs methylprednisolone 4 mg tablets in See Rx Instructions PO .COMPLEX 06/06/24 a dose pack (Medrol (Javed)) #21 ea Allergies Allergy/AdvReac Type Severity Reaction Status Date / Time codeine Allergy Intermediate Rash Verified 12/25/23 16:18 dulaglutide [From Trulicity] Allergy Intermediate Rash Verified 12/25/23 16:18 exenatide [From Bydureon] Allergy Intermediate Rash Verified 12/25/23 16:18 Patient History Medical History Anesthesia complication Depression Diabetes Surgical History History of hysterectomy for benign disease Hx of hernia repair Hx of cholecystectomy History of hysteroscopy (05/14/21) H/O tubal ligation History of section Social History household members: spouse Smoking Status: Never smoker alcohol intake: never Smoking Status: Never smoker alcohol intake frequency: holidays/special occasions only Substance Use Type: does not use Exam Initial Vital Signs Initial Vital Signs: Vital Signs Pulse Rate 78 06/06/24 09:43 Blood Pressure 129/88 06/06/24 09:43 Pulse Oximetry 98 06/06/24 09:43 Const: Awake, alert, in pain, no acute distress MSK: Atraumatic, no midline tenderness, bilateral lumbar paraspinal tenderness Skin: Warm, Dry, intact, no rashes Neuro: AO x3, CN II-XII grossly intact, moves all extremities Course Orders Ordered: Discontinued Medications Acetaminophen (Acetaminophen 325 Mg Tablet) 975 mg PO NOW ONE Stop: 06/06/24 10:02 Last Admin: 06/06/24 10:21 Dose: 975 mg Documented By: RB Dexamethasone (Dexamethasone 10 Mg/Ml Vial) 10 mg IM NOW ONE Stop: 06/06/24 10:02 Last Admin: 06/06/24 10:22 Dose: 10 mg Documented By: RB Diazepam (Diazepam 2 Mg Tablet) 2 mg PO NOW ONE Stop: 06/06/24 10:02 Last Admin: 06/06/24 10:21 Dose: 2 mg Documented By: RB Ketorolac Tromethamine (Ketorolac 30 Mg/Ml Vial) 30 mg IM NOW ONE Stop: 06/06/24 10:02 Last Admin: 06/06/24 10:22 Dose: 30 mg Documented By: RB Lidocaine (Lidocaine 5% Patch) 1 each TOP NOW ONE Stop: 06/06/24 10:02 Last Admin: 06/06/24 10:22 Dose: 1 each Documented By: RB Vital Signs Vital signs: Vital Signs - 8 hr 06/06/24 09:43 06/06/24 09:43 06/06/24 09:44 Temperature 97.9 F Pulse Rate 78 83 Respiratory Rate 18 Blood Pressure 129/88 129/88 Pulse Oximetry 98 99 Oxygen Delivery Method Room Air MDM - Back Pain/Injury MDM Narrative Medical decision making narrative: Lumbar back pain after bending over. No signs or symptoms of cauda equina. Patient was given IV medications for muscle relaxation and pain control. Reported feeling much better. Discharged home with muscle relaxers and Medrol pack Discharge Plan Departure Patient Disposition: Home Clinical Impression: Lumbar paraspinal muscle spasm Instructions: DI for Back Spasm Activity Restrictions/Additional Instructions: You may take up to 1000 mg of Tylenol and 400 mg of ibuprofen every 4-6 hours as needed for pain. Take no more than 4000 mg of Tylenol daily. You may apply ice or heat as required for comfort. Gentle stretching exercises are recommended. Prescriptions: New methocarbamol 500 mg tablet 500 mg PO TID PRN (Reason: muscle spasm) Qty: 60 0RF methylprednisolone [Medrol (Javed)] 4 mg tablets,dose pack See Rx Instructions .ROUTE .COMPLEX Qty: 21 0RF Rx Instructions: orally per package directions No Action albuterol sulfate 90 mcg/actuation HFA aerosol inhaler inhalation diclofenac sodium 1 % gel topical Baqsimi 3 mg/actuation spray,non-aerosol 0 mg intranasal metformin 500 mg tablet extended release 24 hr 1,000 mg PO BID (DME) pen needle, diabetic [BD Ultra-Fine Micro Pen Needle] 32 gauge x 1/4 needle See Rx Instructions .ROUTE .MEDSUPPLY Qty: 100 Patient Comments: [NO ORIGINAL SIG] Rx Instructions: As directed prednisone 20 mg tablet 40 mg PO DAILY Qty: 6 0RF benzonatate 200 mg capsule 200 mg PO BID PRN (Reason: cough) Qty: 28 0RF Victoza 2-Javed 0.6 mg/0.1 mL (18 mg/3 mL) pen injector 0.6 mg SUBCUT DAILY citalopram 40 mg tablet 40 mg PO DAILY atorvastatin 20 mg tablet 20 mg PO BEDTIME insulin glargine [Lantus Solostar U-100 Insulin] 100 unit/mL (3 mL) insulin pen 10 unit SUBCUT QAM hydroxyzine HCl 25 mg tablet 25 mg PO 3XD Referrals: Angie Colmenares PA-C [Primary Care Provider] - Stand Alone Forms: Patient Portal/API, Work Release Note
[2024-06-06] MEDS: diazePAM 2 MG TABLET PO (10:21)
[2024-06-06] MEDS: ACETAMINOPHEN 325 MG TABLET 975 MG PO (10:21)
[2024-06-06] MEDS: DEXAMETHASONE 10 MG/ML VIAL IM (10:22)
[2024-06-06] MEDS: KETOROLAC 30 MG/ML VIAL IM (10:22)
[2024-06-06] MEDS: LIDOCAINE 5% PATCH 1 EACH TOP (10:22)
[2024-06-06 12:10] VITALS: BP 105/67; PULSE 73; TEMP 36.6; O2SAT 95
== END 2024-06-06 12:15 | disposition home or self-care (01) ==
PROVIDERS: Emergency Provider Emergency Medicine; PCP Physician Assistant; Referring Provider Emergency Medicine
DX: M62.830 Muscle spasm of back (principal)
CPT/HCPCS: 96372; 99283; J1100; J1885